=== PATIENT | female | born 1955 | race Caucasian/White ===

== ENCOUNTER 2021-01-08 13:47 | Outpatient (REF) | payer OTHER, SELFPAY ==
[2021-01-14 16:26] LABS: HSV 1 IgM IFA Negative (Negative); HSV 2 IgM IFA Negative (Negative)
== END 2021-01-08 13:48 | disposition home or self-care (01) ==
LOC: HO.HMGCLDS 13:47
PROVIDERS: PCP Physician Assistant; Visit Provider Hospitalist
DX: K13.70 Unspecified lesions of oral mucosa (principal); E11.9 Type 2 diabetes mellitus without complications
CPT/HCPCS: 36415; 86695; 86696

== ENCOUNTER 2021-01-27 11:29 | Outpatient (REF) | payer OTHER, SELFPAY ==
[2021-01-27 13:52] LABS: MANUAL DIFF FLAG NO
[2021-01-27 13:58] LABS: Basophils Percent Auto 0.5 % (0-2); Eosinophils Absolute Auto 0.1 X10*3/uL (0.0-0.4); Eosinophils Percent Auto 2.1 % (0-4); Hematocrit 41.2 % (37-47); Hemoglobin 13.9 g/dl (12.0-16.0); Imm Gran Abs Auto 0.01 X10*3/uL (0.00-0.03); Imm Gran Pct Auto 0.2 % (0.0-0.4); Lymphocytes Absolute Auto 1.1 X10*3/uL (1.2-4.9); Lymphocytes Percent Auto 17.2 % (20-40); Mean Corpuscular HGB Conc 33.7 g/dl (31.0-35.0); Mean Corpuscular Hemoglobin 28.2 pg (27.0-33.0); Mean Corpuscular Volume 83.6 fL (80-98); Mean Platelet Volume 10.8 fL (9.4-12.3); Monocytes Absolute Auto 0.5 X10*3/uL (0.1-1.2); Neutrophils Absolute Auto 4.4 X10*3/uL (2.0-8.3); Platelet Count 206 X10*3/uL (160-400); Red Blood Count 4.93 X10*6/uL (4.20-5.50); Red Cell Distribution Width 12.9 % (11.0-16.0); White Blood Count 6.2 X10*3/uL (4.8-10.8)
[2021-01-27 14:10] LABS: Estimated Average Glucose 140 mg/dL; Hemoglobin A1c % 6.5 %
[2021-01-27 14:42] LABS: TSH reflex Free T4 0.82 uIU/mL (0.32-4.0)
[2021-01-27 14:48] LABS: Alanine Aminotransferase 18 U/L (0-31); Albumin Level 4.6 g/dL (3.5-5.0); Alkaline Phosphatase 69 U/L (39-117); Anion Gap 14 (12-20); Aspartate Amino Transferase 17 U/L (5-31); Bilirubin Total 0.5 mg/dL (0.0-1.0); Blood Urea Nitrogen 19 mg/dL (9-16); Carbon Dioxide 31 mmol/L (22-29); Chloride 100 mmol/L (96-108); Cholesterol 185 mg/dL; Estimated Glomerular Filt Rate 48; Glucose Fasting 149 mg/dL (60-99); HDL Cholesterol 46 mg/dL; LDL Cholesterol Calculated 94 mg/dl; Potassium 4.1 mmol/L (3.3-5.1); Sodium 141 mmol/L (135-145); Total Protein 7.1 g/dL (6.5-8.0); Triglycerides 226 mg/dL
[2021-01-27 15:12] LABS: Creatinine Urine 120.69 mg/dL; Microalbum/Creatinine Ratio Ur 4.1 ug/mg cr
== END 2021-01-27 11:30 | disposition home or self-care (01) ==
LOC: HO.HMGCLDS 11:29
PROVIDERS: PCP Physician Assistant; Visit Provider Physician Assistant
DX: E11.9 Type 2 diabetes mellitus without complications (principal)
CPT/HCPCS: 36415; 80053; 80061; 82043; 83036; 84443; 85025

== ENCOUNTER 2021-08-03 13:35 | Outpatient (REF) | payer OTHER, SELFPAY ==
[2021-08-03 16:32] LABS: Hematocrit 41.8 % (37-47); Hemoglobin 14.3 g/dl (12.0-16.0); Mean Corpuscular HGB Conc 34.2 g/dl (31.0-35.0); Mean Corpuscular Volume 81.8 fL (80-98); Platelet Count 231 X10*3/uL (160-400); Red Blood Count 5.11 X10*6/uL (4.20-5.50); Red Cell Distribution Width 12.8 % (11.0-16.0); White Blood Count 7.2 X10*3/uL (4.8-10.8)
[2021-08-03 16:43] LABS: Alanine Aminotransferase 18 U/L (0-31); Albumin Level 4.6 g/dL (3.5-5.0); Alkaline Phosphatase 72 U/L (39-117); Anion Gap 13 (12-20); Aspartate Amino Transferase 17 U/L (5-31); Bilirubin Total 0.7 mg/dL (0.0-1.0); Blood Urea Nitrogen 13 mg/dL (9-16); Calcium 9.3 mg/dL (8.4-10.2); Carbon Dioxide 26 mmol/L (22-29); Chloride 104 mmol/L (96-108); Cholesterol 187 mg/dL; Estimated Glomerular Filt Rate 54; Glucose Fasting 146 mg/dL (60-99); HDL Cholesterol 45 mg/dL; LDL Cholesterol Calculated 97 mg/dl; Potassium 3.3 mmol/L (3.3-5.1); Sodium 140 mmol/L (135-145); Total Protein 7.2 g/dL (6.5-8.0); Triglycerides 228 mg/dL
[2021-08-03 16:47] LABS: Estimated Average Glucose 143 mg/dL; Hemoglobin A1c % 6.6 %
[2021-08-03 17:04] LABS: TSH reflex Free T4 0.78 uIU/mL (0.32-4.0)
== END 2021-08-03 13:36 | disposition home or self-care (01) ==
LOC: HO.HMGCLDS 13:35
PROVIDERS: PCP Physician Assistant; Visit Provider Physician Assistant
DX: E11.9 Type 2 diabetes mellitus without complications (principal); I10 Essential (primary) hypertension
CPT/HCPCS: 36415; 80053; 80061; 83036; 84443; 85027

== ENCOUNTER 2022-02-04 09:40 | Outpatient (REF) | payer OTHER, SELFPAY ==
[2022-02-04 11:29] LABS: Hematocrit 42.6 % (37.0-47.0); Hemoglobin 14.4 g/dl (12.0-16.0); Mean Corpuscular HGB Conc 33.8 g/dl (31.0-35.0); Mean Corpuscular Hemoglobin 27.4 pg (27.0-33.0); Platelet Count 221 X10*3/uL (160-400); Red Blood Count 5.26 X10*6/uL (4.20-5.50); Red Cell Distribution Width 13.7 % (11.0-16.0); White Blood Count 7.8 X10*3/uL (4.8-10.8)
[2022-02-04 11:54] LABS: Alanine Aminotransferase 23 U/L (0-31); Albumin Level 4.5 g/dL (3.5-5.0); Alkaline Phosphatase 78 U/L (39-117); Anion Gap 16 (12-20); Aspartate Amino Transferase 19 U/L (5-31); Bilirubin Total 0.5 mg/dL (0.0-1.0); Blood Urea Nitrogen 20 mg/dL (9-16); Calcium 9.7 mg/dL (8.4-10.2); Carbon Dioxide 27 mmol/L (22-29); Chloride 98 mmol/L (96-108); Cholesterol 192 mg/dL; Estimated Glomerular Filt Rate 48; Glucose Fasting 183 mg/dL (60-99); HDL Cholesterol 42 mg/dL; LDL Cholesterol Calculated 84 mg/dl; Potassium 3.4 mmol/L (3.3-5.1); Sodium 138 mmol/L (135-145); Total Protein 7.3 g/dL (6.5-8.0); Triglycerides 330 mg/dL
[2022-02-04 12:03] LABS: TSH reflex Free T4 1.48 uIU/mL (0.32-4.0)
[2022-02-04 12:08] LABS: Estimated Average Glucose 163 mg/dL; Hemoglobin A1c % 7.3 %
[2022-02-04 14:34] LABS: Creatinine Urine 54.22 mg/dL; Microalbum/Creatinine Ratio Ur 20.2 ug/mg cr
== END 2022-02-04 09:41 | disposition home or self-care (01) ==
LOC: HO.HMGCLDS 09:40
PROVIDERS: Visit Provider Physician Assistant
DX: E11.9 Type 2 diabetes mellitus without complications (principal); E78.1 Pure hyperglyceridemia; I10 Essential (primary) hypertension
CPT/HCPCS: 36415; 80053; 80061; 82043; 83036; 84443; 85027

== ENCOUNTER 2022-08-04 11:06 | Outpatient (REF) | payer OTHER, SELFPAY ==
[2022-08-04 14:03] LABS: Hematocrit 42.8 % (37.0-47.0); Hemoglobin 14.5 g/dl (12.0-16.0); Mean Corpuscular HGB Conc 33.9 g/dl (31.0-35.0); Mean Corpuscular Hemoglobin 27.1 pg (27.0-33.0); Mean Corpuscular Volume 79.9 fL (80.0-98.0); Mean Platelet Volume 10.6 fL (9.4-12.3); Platelet Count 214 X10*3/uL (160-400); Red Blood Count 5.36 X10*6/uL (4.20-5.50); Red Cell Distribution Width 13.4 % (11.0-16.0)
[2022-08-04 14:25] LABS: Estimated Average Glucose 146 mg/dL; Hemoglobin A1c % 6.7 %
[2022-08-04 14:33] LABS: Alanine Aminotransferase 23 U/L (0-31); Albumin Level 4.6 g/dL (3.5-5.0); Alkaline Phosphatase 68 U/L (39-117); Anion Gap 15 (12-20); Aspartate Amino Transferase 20 U/L (5-31); Bilirubin Total 0.8 mg/dL (0.0-1.0); Blood Urea Nitrogen 18 mg/dL (9-16); Calcium 9.5 mg/dL (8.4-10.2); Carbon Dioxide 28 mmol/L (22-29); Chloride 97 mmol/L (96-108); Cholesterol 161 mg/dL; Estimated Glomerular Filt Rate 41; Glucose Fasting 200 mg/dL (60-99); HDL Cholesterol 38 mg/dL; LDL Cholesterol Calculated 74 mg/dl; Potassium 3.3 mmol/L (3.3-5.1); Sodium 137 mmol/L (135-145); Total Protein 7.2 g/dL (6.5-8.0); Triglycerides 248 mg/dL
[2022-08-04 14:45] LABS: TSH reflex Free T4 0.62 uIU/mL (0.32-4.0)
== END 2022-08-04 11:07 | disposition home or self-care (01) ==
LOC: HO.HMGCLDS 11:06
PROVIDERS: PCP Physician Assistant; Visit Provider Physician Assistant
DX: E11.9 Type 2 diabetes mellitus without complications (principal); E78.1 Pure hyperglyceridemia
CPT/HCPCS: 36415; 80053; 80061; 83036; 84443; 85027

== ENCOUNTER 2023-01-04 15:37 | Outpatient (REF) | payer OTHER, SELFPAY ==
[2023-01-04 18:26] LABS: Influenza A PCR NEGATIVE (Negative); Influenza B PCR NEGATIVE (Negative); Resp Syncy Virus RNA Qual PCR NEGATIVE (Negative); SARS COV2 PCR INHOUSE NEGATIVE (Negative)
== END 2023-01-04 15:38 | disposition home or self-care (01) ==
LOC: HO.LAB 15:37
PROVIDERS: Visit Provider Internal Medicine
DX: Z20.822 Contact with and (suspected) exposure to COVID-19 (principal); J06.9 Acute upper respiratory infection, unspecified
CPT/HCPCS: 0241U

== ENCOUNTER 2023-02-17 11:17 | Outpatient (REF) | payer OTHER, SELFPAY ==
[2023-02-17 14:10] LABS: Hematocrit 41.7 % (37.0-47.0); Hemoglobin 13.9 g/dl (12.0-16.0); Mean Corpuscular HGB Conc 33.3 g/dl (31.0-35.0); Mean Corpuscular Hemoglobin 27.5 pg (27.0-33.0); Mean Corpuscular Volume 82.6 fL (80.0-98.0); Mean Platelet Volume 10.9 fL (9.4-12.3); Platelet Count 228 X10*3/uL (160-400); Red Blood Count 5.05 X10*6/uL (4.20-5.50); Red Cell Distribution Width 14.2 % (11.0-16.0); White Blood Count 7.1 X10*3/uL (4.8-10.8)
[2023-02-17 14:14] LABS: Estimated Average Glucose 137 mg/dL; Hemoglobin A1c % 6.4 %
[2023-02-17 14:33] LABS: Alanine Aminotransferase 18 U/L (0-31); Albumin Level 4.5 g/dL (3.5-5.0); Alkaline Phosphatase 69 U/L (39-117); Anion Gap 15 (12-20); Aspartate Amino Transferase 18 U/L (5-31); Bilirubin Total 0.8 mg/dL (0.0-1.0); Blood Urea Nitrogen 17 mg/dL (9-16); Calcium 9.6 mg/dL (8.4-10.2); Carbon Dioxide 28 mmol/L (22-29); Chloride 102 mmol/L (96-108); Cholesterol 184 mg/dL; Estimated Glomerular Filt Rate 43; Glucose Fasting 121 mg/dL (60-99); HDL Cholesterol 41 mg/dL; LDL Cholesterol Calculated 85 mg/dl; Potassium 3.6 mmol/L (3.3-5.1); Sodium 141 mmol/L (135-145); Total Protein 7.1 g/dL (6.5-8.0); Triglycerides 293 mg/dL
[2023-02-17 14:36] LABS: Magnesium 1.4 mg/dL (1.6-2.6)
[2023-02-17 14:49] LABS: TSH reflex Free T4 1.12 uIU/mL (0.32-4.0); Vitamin D 25-OH Total 27.3 ng/mL (>30)
[2023-02-18 14:04] LABS: Calcium (PTHI) 9.7 mg/dL (8.6-10.4); PTHI 35 pg/mL (16-77)
[2023-02-20 01:58] LABS: A. Phagocytphilium DNA,RT-PCR NOT DETECTED (NOT DETECTED); Babesia Microti DNA, RT-PCR NOT DETECTED (NOT DETECTED); Borrelia Miyamotoi,DNA RT-PCR NOT DETECTED (NOT DETECTED); E.Chaffeensis DNA RT-PCR NOT DETECTED (NOT DETECTED); Lyme(Borrelia ssp)DNA RT-PCR NOT DETECTED (NOT DETECTED)
[2023-02-24 12:18] LABS: Babesia IgG <1:64 titer (<1:64); Babesia IgM <1:20 titer (<1:20)
== END 2023-02-17 11:18 | disposition home or self-care (01) ==
LOC: HO.HMGCLDS 11:17
PROVIDERS: PCP Physician Assistant; Visit Provider Physician Assistant
DX: R53.82 Chronic fatigue, unspecified (principal); E78.1 Pure hyperglyceridemia; E11.9 Type 2 diabetes mellitus without complications; E66.9 Obesity, unspecified; F32.A Depression, unspecified
CPT/HCPCS: 36415; 80053; 80061; 82306; 83036; 83735; 83970; 84443; 85027; 86753; 87798; 87801

== ENCOUNTER 2023-02-21 12:02 | Outpatient (REF) | payer OTHER, SELFPAY ==
[2023-02-21 14:15] LABS: Appearance Urine Clear; Color Urine Yellow; Glucose Urine UA Negative (Negative); Leukocyte Esterase Urine Negative (Negative); Nitrite Urine Negative (Negative); Urine Blood Negative (Negative); Urine Ketones Negative (Negative); Urine Protein Negative (Neg-Trace)
[2023-02-21 14:31] LABS: Magnesium 2.4 mg/dL (1.6-2.6)
[2023-02-21 15:04] LABS: Creatinine Urine 46.41 mg/dL; Microalbumin Urine < 5.0 mg/L
== END 2023-02-21 12:03 | disposition home or self-care (01) ==
LOC: HO.HMGCLDS 12:02
PROVIDERS: Absent Provider Nurse Practitioner Family; PCP Physician Assistant; Visit Provider Physician Assistant
DX: R30.0 Dysuria (principal); R53.83 Other fatigue; E83.42 Hypomagnesemia; E11.9 Type 2 diabetes mellitus without complications
CPT/HCPCS: 36415; 81003; 82043; 83735

== ENCOUNTER 2023-08-03 14:01 | Outpatient (AMB) | payer OTHER, SELFPAY ==
[2023-08-03 14:02] VITALS: BP 122/70; PULSE 84; O2SAT 95; BMI 32.2
--- NOTE | 2023-08-03 14:02 | MHC.OFFVIS ---
Intake Vital Signs 08/03/23 14:02 Height 5 ft 4 in Weight 187 lb 6 oz BMI 32.2 BP 122/70 Blood Pressure Location Rt brachial Position Sitting Pulse 84 Pulse Source Pulse Oximeter Pulse Oximetry (%) 95 Oxygen Delivery Method Room Air Intake Visit Reasons: INP- Lateral popliteal nerve Intake Note: Pt presents as a NPV for laterlal popliteal nerve. 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 side of pain. stop moving pain start. pain worse whe she sedentry. When she moves the pain has better. half hour walking . She started topiramate 6 months. podiatry and had ner conduction study. Denies injuries of lower extremities. used compression stocking for rufus swallowing feet Since at her age 21. PFSH Medical History (Updated 08/25/23 @ 09:10 by Yonatan Wiggins PA-C) Hypomagnesemia Surgical History (Updated 08/03/23 @ 14:12 by Nohelia Parnell CMA) Hx of cataract surgery H/O dilation and curettage History of craniotomy History of left salpingo-oophorectomy Family History Father Prostate cancer Mother No problems noted. Son No problems noted. Social History (Updated 08/03/23 @ 14:12 by Nohelia Parnell CMA) Housing: House Alcohol intake: former Patient Tobacco Use Status: Former Tobacco user Quit Date: 1996 e-Cigarette/Vaping Use: Never Used Second Hand Smoke Exposure: No service: No Current occupational status: retired Cognitive needs: No Hearing needs: No Vision needs: Yes (glasses) Review of Systems ENT Reports Normal hearing present Neuro Reports Normal hearing present Physical Exam Vital Signs: Last Vital Signs Pulse 84 08/03/23 14:02 BP 122/70 08/03/23 14:02 Pulse Ox 95 08/03/23 14:02 Oxygen Delivery Method Room Air 08/03/23 14:02 BMI result Body Mass Index 32.2 Const General: cooperative and healthy appearing Nutritional Appearance: obese Orientation/consciousness: patient oriented x3 Neck Neck: Yes full ROM and Yes supple Resp Effort & Inspection: normal respiratory effort and able to speak in complete sentences Neuro General: patient oriented x3, gait normal and moves all extremities Cranial nerves: Yes Bilaterally intact EOM present, Yes Normal facial strength present, Yes Midline tongue present, Yes Symmetric palate elevation present, Yes Normal hearing present, Yes Ability to bilaterally rotate head present and Yes Ability to bilaterally elevate shoulders present Cognition (Neuro): normal cognition Motor exam (neuro): 5/5 motor strength present throughout, Pronator motor function not present and no tremor noted Deep tendon reflexes (DTR's): Rt Biceps (C5, C6): 2+, Left biceps reflex intensity grade: 2+, Right brachioradialis reflex intensity grade: 2+, Left brachioradialis reflex intensity grade: 2+, Right patellar reflex intensity grade: 2+ and Left patellar reflex intensity grade: 2+ Psych Appearance: grossly normal Mental Status: mental status grossly normal Affect: normal affect Attitude: cooperative Assessment & Plan Assessment & Plan (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 Advised patient to use knee braces on her bilateral knees. Encouraged patient to try gentle daily exercise and well balanced diet. Orders: Orders PT Evaluation and Treatment 12 Weeks G57.30 - Lesion of lateral popliteal nerve, unspecified lower limb Coding Level of Care Code New Pt Level 3 (72781) Diagnoses Peroneal neuropathy G57.30
== END 2023-08-03 15:29 | disposition home or self-care (01) ==
PROVIDERS: Visit Provider Nurse Practitioner Family
DX: G57.30 Lesion of lateral popliteal nerve, unspecified lower limb (principal)
CPT/HCPCS: 99203

== ENCOUNTER → 2023-08-03 14:01 | Outpatient (BNVA) | payer OTHER, SELFPAY | PROVIDERS: Visit Provider Nurse Practitioner Family ==

== ENCOUNTER 2023-08-24 11:24 | Outpatient (REF) | payer OTHER, SELFPAY ==
[2023-08-24 13:25] LABS: Hematocrit 39.8 % (37.0-47.0); Hemoglobin 13.7 g/dl (12.0-16.0); Mean Corpuscular HGB Conc 34.4 g/dl (31.0-35.0); Mean Corpuscular Hemoglobin 27.8 pg (27.0-33.0); Mean Corpuscular Volume 80.9 fL (80.0-98.0); Mean Platelet Volume 10.5 fL (9.4-12.3); Platelet Count 224 X10*3/uL (160-400); Red Blood Count 4.92 X10*6/uL (4.20-5.50); Red Cell Distribution Width 13.8 % (11.0-16.0); White Blood Count 6.1 X10*3/uL (4.8-10.8)
[2023-08-24 13:33] LABS: Estimated Average Glucose 114 mg/dL; Hemoglobin A1c % 5.6 % (<6.0)
[2023-08-24 14:02] LABS: Alanine Aminotransferase 15 U/L (0-31); Albumin Level 4.4 g/dL (3.5-5.0); Alkaline Phosphatase 60 U/L (39-117); Anion Gap 16 (12-20); Aspartate Amino Transferase 19 U/L (5-31); Bilirubin Total 0.6 mg/dL (0.0-1.0); Blood Urea Nitrogen 17 mg/dL (9-16); Calcium 9.3 mg/dL (8.4-10.2); Carbon Dioxide 26 mmol/L (22-29); Chloride 101 mmol/L (96-108); Cholesterol 150 mg/dL (<200); Estimated Glomerular Filt Rate 51; Glucose Fasting 94 mg/dL (60-99); HDL Cholesterol 37 mg/dL (>40); LDL Cholesterol Calculated 74 mg/dL (<100); Potassium 2.8 mmol/L (3.3-5.1); Sodium 140 mmol/L (135-145); Total Protein 7.3 g/dL (6.5-8.0); Triglycerides 198 mg/dL (<150)
[2023-08-24 14:20] LABS: TSH reflex Free T4 0.87 uIU/mL (0.32-4.0)
== END 2023-08-24 11:25 | disposition home or self-care (01) ==
LOC: HO.HMGCLDS 11:24
PROVIDERS: PCP Physician Assistant; Visit Provider Physician Assistant
DX: E11.9 Type 2 diabetes mellitus without complications (principal); E66.09 Other obesity due to excess calories; Z68.34 Body mass index [BMI] 34.0-34.9, adult
CPT/HCPCS: 36415; 80053; 80061; 83036; 84443; 85027

== ENCOUNTER 2023-08-30 12:09 | Outpatient (REF) | payer OTHER, SELFPAY | END 2023-08-30 12:10 | disposition home or self-care (01) | LOC: HO.HMGCLDS 12:09 | PROVIDERS: PCP Physician Assistant; Visit Provider Physician Assistant | DX: E87.6 Hypokalemia (principal) | CPT/HCPCS: 36415; 84132 ==

== ENCOUNTER 2023-08-31 13:18 | Outpatient (AMB) | payer OTHER, SELFPAY ==
[2023-08-31 13:23] VITALS: BP 120/68; PULSE 66; RESP 17; O2SAT 98; BMI 31.8
--- NOTE | 2023-08-31 13:23 | MHC.PC.OV ---
Vital Signs 08/31/23 13:23 Height 5 ft 4 in Weight 185 lb 4 oz BMI 31.8 BP 120/68 Blood Pressure Location Lt brachial Position Sitting Respiration 17 Pulse 66 Pulse Source Pulse Oximeter Pulse Oximetry (%) 98 Oxygen Delivery Method Room Air Intake Visit Reasons: PE Intake Note: Patient is here today for a physical. 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 Accompanied by: Self / Same As Patient Allergies penicillin V Allergy (Unknown, Verified 08/31/23 13:33) Unknown Medication List - Last Reconciled 08/31/23 by Yonatan Wiggins PA-C atorvastatin 80 mg PO DAILY 90 days dextroamphetamine-amphetamine 20 mg ER (Adderall XR) 20 mg PO DAILY dulaglutide (Trulicity) 0.75 mg subcut .Q2week sertraline 100 mg PO DAILY topiramate 100 mg PO BEDTIME trazodone 100 mg PO BEDTIME triamterene-hydrochlorothiazid 37.5-25 mg 1 tab PO DAILY ziprasidone HCl (Geodon) 20 mg PO DAILY Tobacco use date assessed: 02/23/23 Fall risk assessment: No Falls in past year Last assessed Fall Risk: 08/31/23 Dental Screening Dental Screen Date: 08/31/23 Did you have a dental visit in the last 12 months?: Yes Did you have a dental problem in the last 6 months where you did not have access to dental care?: No Was dental information given to patient?: Patient has dentist HPI PE HPI Details Patient is a 68-year-old female here today for a routine annual physical. ? Patient has a past history significant type 2 diabetes, mdd, hypertension history of craniotomy. Concern--> noted low-potassium most recent labs. She has been trying to increase her potassium is foods. PLAN: Will decrease her dose of hydrochlorothiazide. Will add on potassium supplement for the next 2 weeks. Advised to recheck potassium next week. Also reports she has been having intermittent loose stool and diarrhea, abdominal bloating and epigastric pain. She has been using Pepto-Bismol which helps a bit though continues to have abdominal symptoms. 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 .. Type 2 diabetes:? Has been well controlled with Trulicity (using every other week) lifestyle changes.? A1c is much improved.? Has lost weight since last office visit. She reports she feels great. ? She is followed by eye doctor and gets diabetic eye exams. HLD: Patient's total cholesterol improved, LDL acceptable.? Patient continues on statin therapy without side effect. .. Major depressive disorder:? Patient continues to follow with psychiatrist who manages all her mental health medications.? She reports her depression is fairly well controlled though still has times of depressive moods and decreased motivation. Colonoscopy: gets colon done q 5 year-- > goes to [facility] provider . Mammogram:? Has been benign January of 2023- normal ( [facility]), ZOO DIRECTOR: See Dr Ashley at [facility]. .. VAccine:UTD with Tdap and PCV and COVID vaccine, shingles vaccine and flu vaccine Laboratory Tests 02/23/23 08/24/23 08/24/23 15:29 11:31 11:31 RBC 4.92 Potassium Hgb A1c (Clinic) 5.9 Hemoglobin A1c % 5.6 Cholesterol 150 TSH 0.87 08/24/23 08/30/23 11:31 12:12 RBC Potassium 2.8 L D 2.7 L Hgb A1c (Clinic) Hemoglobin A1c % Cholesterol TSH PFSH Medical History (Updated 08/31/23 @ 14:00 by Yonatan Wiggins PA-C) Hypomagnesemia Surgical History Hx of cataract surgery H/O dilation and curettage History of craniotomy History of left salpingo-oophorectomy Family History Father Prostate cancer Mother No problems noted. Son No problems noted. Social History Housing: House Alcohol intake: former Patient Tobacco Use Status: Former Tobacco user Quit Date: 1996 e-Cigarette/Vaping Use: Never Used Second Hand Smoke Exposure: No service: No Current occupational status: retired Cognitive needs: No Hearing needs: No Vision needs: Yes (glasses) Questionnaire Thrive Questionnaire Date Thrive assessed: 02/23/23 FILIBERTO-7 AMB Questionnaire FILIBERTO-7 Date FILIBERTO - 7 assessed: 02/23/23 Source: Developed by Drs. Abdirahman Lepe, Renetta B.W. Giovani Wheeler and colleagues, with an educational celi from [employer]. Review of Systems Const Denies body aches, Denies chills, Denies excessive sweating, Denies fatigue, Denies fever(s) and Denies headache(s) Eyes Denies blurry vision ENT Denies dysphagia, Denies vertigo, Denies dizziness, Denies headache(s), Denies hearing loss and Denies tinnitus Card Denies chest pain, Denies chest pain with activity, Denies syncope, Denies irregular heart rhythm and Denies dyspnea Resp Denies chest congestion, Denies cough, Denies hemoptysis, Denies dyspnea and Denies wheezing GI Denies abdominal pain, Denies melena, Denies hematochezia, Denies coffee ground emesis, Denies dysphagia, Denies diarrhea, Denies nausea and Denies vomiting Denies urinary frequency, Denies dysuria, Denies urinary hesitancy and Denies urinary urgency Musc Denies arthralgias, Denies limited range of motion, Denies muscle cramps and Denies muscle weakness Skin/Breast Denies rash and Denies skin ulcer Neuro Denies Abnormal speech present, Denies confusion, Denies vertigo, Denies dizziness, Denies syncope, Denies headache(s), Denies memory loss and Denies seizure-like activity Psych Denies anxiety, Denies confusion, Denies depression, Denies memory loss, Denies panic attacks and Denies paranoia Endo Denies excessive sweating, Denies fatigue, Denies flushing, Denies polydipsia and Denies polyuria Aller/Immun Denies wheezing Physical exam (Primary Care) Vital Signs: Last Vital Signs Pulse 66 08/31/23 13:23 Resp 17 08/31/23 13:23 BP 120/68 08/31/23 13:23 Pulse Ox 98 08/31/23 13:23 Oxygen Delivery Method Room Air 08/31/23 13:23 BMI result Body Mass Index 31.8 BMI Assessment/Plan discussion: High Tobacco/Smoking Status: Tobacco use Status Tobacco use date assessed 02/23/23 08/31/23 13:31 Patient Tobacco Use Status Former Tobacco user 08/31/23 13:31 e-Cigarette/Vaping Use Never Used 08/31/23 13:31 Thrive Assessment: Date of Thrive Assessment Date Thrive assessed 02/23/23 08/31/23 13:31 Const Other: Obese- though weight loss noted General: cooperative, comfortable, no acute distress, alert and awake; No confusion Orientation/consciousness: oriented to person, oriented to place, patient oriented x3 and No confusion HENMT Head: Yes normocephalic Ears: external ears normal and TM's normal bilaterally Face and sinus: No sinus tenderness Mouth: Normal oral and palatal mucosa present and tongue normal Teeth and gingiva: dentition normal and gingiva normal Throat: Yes posterior oropharynx normal, Yes tonsils normal and Yes uvula midline Eyes Conjunctivae: conjunctivae normal Sclerae: sclerae normal Pupils: Equal, round and reactive pupils present EOM: EOMs intact bilaterally Direct Ophthalmoscopy: No no photophobia Neck Neck: Yes no lymphadenopathy, No tender and Yes no JVD Thyroid: Thyroid normal Carotids: no bruits Chest Chest palpation & inspection: no tenderness Resp Effort & Inspection: normal respiratory effort, no audible wheezes, not labored and no stridor Auscultation: no crackles, no rales, no rhonchi and no wheezes Cardio Jugular venous distension: no JVD Rate: regular rate, not bradycardic and not tachycardic Rhythm: regular rhythm Bruits: no carotid bruits Peripheral pulses: Peripheral pulses 2+ throughout GI Inspection: Yes normal to inspection, No abdominal wall ecchymosis and No visible herniation Palpation (GI): Soft to palpation, nontender, no guarding, not rigid and No hepatosplenomegaly present Auscultation: normoactive bowel sounds General: Yes no CVA tenderness Back/Spine/Pelvis Back: no CVA tenderness and No back tenderness Cervical Spine: cervical ROM normal Thoracic/Lumbar Spine: thoracic and lumbar spine normal to inspection, straight leg raise negative bilaterally, No thoraco-lumbar ROM limited and No lumbar spinal tenderness Skin Lesions: no lesions Rashes: no rashes Wounds: no wounds Neuro General: oriented to person, oriented to place, patient oriented x3, CN's II-XI intact bilaterally and No confusion Cranial nerves: Yes Equal, round and reactive pupils present and Yes Normal accommodation reflex present Cognition (Neuro): normal cognition Speech: No Abnormal speech present Gait exam (Neuro): Normal gait present Motor exam (neuro): 5/5 motor strength present throughout Extrem Right upper extremity: full ROM; no cyanosis Left upper extremity: full ROM; no cyanosis Right lower extremity: no edema Left lower extremity: no edema Psych Appearance: grossly normal Mental Status: mental status grossly normal Affect: normal affect Attitude: cooperative Thought process: Normal thought process present Assessment and Plan Assessment & Plan (1) Annual physical exam: Code(s): Z00.00 - Encounter for general adult medical examination without abnormal findings (2) Hypokalemia: Code(s): E87.6 - Hypokalemia Plan: As per HPI will recheck potassium. Hypokalemia likely related to medication in combination with loose stools. Will reduce her dose of hydrochlorothiazide 12.5 mg (3) HLD (hyperlipidemia): Code(s): E78.5 - Hyperlipidemia, unspecified Qualifiers: Hyperlipidemia type: mixed hyperlipidemia Qualified Code(s): E78.2 - Mixed hyperlipidemia Plan: Most recent lipid panel showing appropriate total cholesterol and LDL. Patient will continue on high-dose statin therapy with goal LDL to remain below 100 (4) DMII (diabetes mellitus, type 2): Code(s): E11.9 - Type 2 diabetes mellitus without complications Qualifiers: Diabetes mellitus complication status: without complication Diabetes mellitus intermediate frame tender insulin use: without care home use Qualified Code(s): E11.9 - Type 2 diabetes mellitus without complications Plan: Patient's type 2 diabetes well controlled with current dose Trulicity every other week. Continue to work on lifestyle modifications and a diabetic diet. Goal A1c is to remain below 6.5 (5) Acute diarrhea: Code(s): R19.7 - Diarrhea, unspecified Plan: Have reviewed Sola reports having intermittent episodes of acute diarrhea, at times having urgency. She is wondering about another colonoscopy will ask her GI specialist. Advised on stool bulking agents in the use loperamide. Will send for stool testing to evaluate for inflammatory GI process Orders: Orders Leukocytes Stool Qualitative 08/31/23 R19.7 - Diarrhea, unspecified Comprehensive [place]. Panel Fast 6 Months E11.9 - Type 2 diabetes mellitus without complications Basic Metabolic Panel 08/31/23 E87.6 - Hypokalemia Giardia Ag Stool EIA 08/31/23 R19.7 - Diarrhea, unspecified Calprotectin, Fecal 08/31/23 R19.7 - Diarrhea, unspecified Lipid Panel 6 Months E78.2 - Mixed hyperlipidemia Complete Blood Count no Diff 6 Months E11.9 - Type 2 diabetes mellitus without complications Medications: New hydrochlorothiazide 12.5 mg PO DAILY 30 days 30 tabs 3RF E87.6 - Hypokalemia potassium chloride ER (Klor-Con) 10 mEq PO DAILY 14 days 14 tabs 0RF E87.6 - Hypokalemia hydrochlorothiazide 12.5 mg PO DAILY 30 days 30 tabs 3RF E87.6 - Hypokalemia potassium chloride ER (Klor-Con) 10 mEq PO DAILY 14 days 14 tabs 0RF E87.6 - Hypokalemia Coding Level of Care Code Est Pt Prev Care >65y(86739) Diagnoses Annual physical exam Z00.00 Hypokalemia E87.6 Mixed hyperlipidemia E78.2 Hyperlipidemia type: mixed hyperlipidemia Type 2 diabetes mellitus without complication, without long-term current use of insulin E11.9 Diabetes mellitus complication status: without complication Diabetes mellitus intermediate frame tender insulin use: without care home use Acute diarrhea R19.7
== END 2023-08-31 14:08 | disposition home or self-care (01) ==
PROVIDERS: Visit Provider Physician Assistant
DX: Z00.00 Encounter for general adult medical examination without abnormal findings (principal); E87.6 Hypokalemia; E78.2 Mixed hyperlipidemia; E11.9 Type 2 diabetes mellitus without complications; R19.7 Diarrhea, unspecified
CPT/HCPCS: 99397

== ENCOUNTER 2023-09-13 14:35 | Outpatient (REF) | payer OTHER, SELFPAY ==
[2023-09-13 16:59] LABS: Anion Gap 14 (12-20); Blood Urea Nitrogen 13 mg/dL (9-16); Calcium 9.3 mg/dL (8.4-10.2); Carbon Dioxide 26 mmol/L (22-29); Chloride 104 mmol/L (96-108); Estimated Glomerular Filt Rate > 60; Glucose Random 91 mg/dL (60-115); Potassium 2.9 mmol/L (3.3-5.1); Sodium 141 mmol/L (135-145)
== END 2023-09-13 14:36 | disposition home or self-care (01) ==
LOC: HO.HMGCLDS 14:35
PROVIDERS: PCP Physician Assistant; Visit Provider Physician Assistant
DX: E87.6 Hypokalemia (principal)
CPT/HCPCS: 36415; 80048

== ENCOUNTER 2023-10-04 13:49 | Outpatient (REF) | payer OTHER, SELFPAY ==
[2023-10-04 16:26] LABS: Potassium 2.8 mmol/L (3.3-5.1)
== END 2023-10-04 13:50 | disposition home or self-care (01) ==
LOC: HO.HMGCLDS 13:49
PROVIDERS: PCP Physician Assistant; Visit Provider Physician Assistant
DX: E87.6 Hypokalemia (principal)
CPT/HCPCS: 36415; 84132

== ENCOUNTER 2023-11-08 13:53 | Outpatient (REF) | payer OTHER, SELFPAY ==
[2023-11-08 16:17] LABS: Potassium 2.9 mmol/L (3.3-5.1)
== END 2023-11-08 13:54 | disposition home or self-care (01) ==
LOC: HO.HMGCLDS 13:53
PROVIDERS: PCP Physician Assistant; Visit Provider Physician Assistant
DX: E87.6 Hypokalemia (principal)
CPT/HCPCS: 36415; 84132

== ENCOUNTER 2023-12-29 12:52 | Outpatient (REF) | payer OTHER, SELFPAY ==
[2023-12-29 16:22] LABS: Potassium 3.1 mmol/L (3.3-5.1)
[2023-12-29 16:34] LABS: Anion Gap 13 (12-20); Blood Urea Nitrogen 17 mg/dL (9-16); Calcium 9.6 mg/dL (8.4-10.2); Carbon Dioxide 28 mmol/L (22-29); Chloride 99 mmol/L (96-108); Estimated Glomerular Filt Rate 45; Glucose Random 125 mg/dL (60-115); Magnesium 1.9 mg/dL (1.6-2.6); Potassium 3.3 mmol/L (3.3-5.1); Sodium 137 mmol/L (135-145)
== END 2023-12-29 12:53 | disposition home or self-care (01) ==
LOC: HO.HMGCLDS 12:52
PROVIDERS: PCP Physician Assistant; Visit Provider Physician Assistant
DX: E87.6 Hypokalemia (principal); E83.42 Hypomagnesemia
CPT/HCPCS: 36415; 80048; 83735; 84132

== ENCOUNTER 2024-02-16 11:06 | Outpatient (REF) | payer OTHER, SELFPAY ==
[2024-02-16 13:46] LABS: Anion Gap 16 (12-20); Blood Urea Nitrogen 17 mg/dL (9-16); Calcium 9.4 mg/dL (8.4-10.2); Carbon Dioxide 28 mmol/L (22-29); Chloride 100 mmol/L (96-108); Estimated Glomerular Filt Rate 53; Glucose Random 126 mg/dL (60-115); Potassium 3.2 mmol/L (3.3-5.1); Sodium 141 mmol/L (135-145)
== END 2024-02-16 11:07 | disposition home or self-care (01) ==
LOC: HO.HMGCLDS 11:06
PROVIDERS: PCP Physician Assistant; Visit Provider Physician Assistant
DX: E87.6 Hypokalemia (principal)
CPT/HCPCS: 36415; 80048

== ENCOUNTER 2024-03-05 11:45 | Outpatient (REF) | payer OTHER, SELFPAY ==
[2024-03-05 13:49] LABS: Hematocrit 42.1 % (37.0-47.0); Hemoglobin 13.9 g/dl (12.0-16.0); Mean Corpuscular Hemoglobin 27.8 pg (27.0-33.0); Mean Corpuscular Volume 84.2 fL (80.0-98.0); Mean Platelet Volume 10.3 fL (9.4-12.3); Platelet Count 199 X10*3/uL (160-400); Red Cell Distribution Width 14.1 % (11.0-16.0); White Blood Count 6.4 X10*3/uL (4.8-10.8)
[2024-03-05 14:22] LABS: Alanine Aminotransferase 13 U/L (0-31); Albumin Level 4.2 g/dL (3.5-5.0); Alkaline Phosphatase 69 U/L (39-117); Anion Gap 14 (12-20); Aspartate Amino Transferase 15 U/L (5-31); Bilirubin Total 0.5 mg/dL (0.0-1.0); Blood Urea Nitrogen 19 mg/dL (9-16); Calcium 9.3 mg/dL (8.4-10.2); Carbon Dioxide 23 mmol/L (22-29); Chloride 108 mmol/L (96-108); Cholesterol 147 mg/dL (<200); Estimated Glomerular Filt Rate 51; Glucose Fasting 77 mg/dL (60-99); HDL Cholesterol 47 mg/dL (>40); LDL Cholesterol Calculated 70 mg/dL (<100); Potassium 3.8 mmol/L (3.3-5.1); Sodium 141 mmol/L (135-145); Triglycerides 153 mg/dL (<150)
== END 2024-03-05 11:46 | disposition home or self-care (01) ==
LOC: HO.HMGCLDS 11:45
PROVIDERS: PCP Physician Assistant; Visit Provider Physician Assistant
DX: E11.9 Type 2 diabetes mellitus without complications (principal); E78.2 Mixed hyperlipidemia
CPT/HCPCS: 36415; 80053; 80061; 85027

== ENCOUNTER 2024-03-12 10:06 | Outpatient (AMB) | payer OTHER, SELFPAY ==
[2024-03-12 10:07] VITALS: BP 120/62; PULSE 77; O2SAT 99; BMI 34.2
--- NOTE | 2024-03-12 10:07 | A.OFFPC_ITS ---
Vital Signs 03/12/24 10:07 Height 5 ft 4 in Weight 199 lb 8 oz BMI 34.2 BP 120/62 Blood Pressure Location Lt brachial Position Sitting Pulse 77 Pulse Source Pulse Oximeter Pulse Oximetry (%) 99 Oxygen Delivery Method Room Air Intake Visit Reasons: f/u DMII/ HLD [place] Required: No Accompanied by: Self / Same As Patient Allergies penicillin V Allergy (Unknown, Verified 03/12/24 10:20) Unknown hydrochlorothiazide Adverse Reaction (Intermediate, Verified 03/15/24 08:05) Hypokalemia Medication List - Last Reconciled 03/12/24 by Yonatan Wiggins PA-C atorvastatin 80 mg PO DAILY 90 days dextroamphetamine-amphetamine 20 mg ER (Adderall XR) 20 mg PO DAILY dulaglutide (Trulicity) 0.75 mg subcut .Q2week hydrochlorothiazide 12.5 mg PO DAILY 30 days potassium chloride ER (Klor-Con M) 20 mEq PO DAILY 30 days sertraline 100 mg PO DAILY topiramate 100 mg PO BEDTIME trazodone 100 mg PO BEDTIME ziprasidone HCl (Geodon) 20 mg PO DAILY Tobacco use date assessed: 03/12/24 Fall risk assessment: No Falls in past year Last assessed Fall Risk: 03/12/24 Dental Screening Dental Screen Date: 03/12/24 Did you have a dental visit in the last 12 months?: Yes Did you have a dental problem in the last 6 months where you did not have access to dental care?: No Was dental information given to patient?: Patient has dentist HPI f/u DMII/ HLD HPI Details Patient is a 69-year-old female here today for a follow-up visit. ? Patient has a past history significant type 2 diabetes, mdd, hypertension history of craniotomy. Concern--> Having bilateral arm pain over the last few months. She denies any recent overuse or trauma to her upper extremities/ Hypokalemia: Noted improved potassium on most recent labs. Her hydrochlorothiazide was decreased. Unfortunately has gained weight since being off of diuretic. Has been started on potassium supplementation. She has been trying to increase her potassium is foods. .. Type 2 diabetes:? Has been well controlled with Trulicity (using every other week) lifestyle changes.? A1c has been stable. Unfortunately has gained weight since last office visit and she does admit to being more sedentary over the winter. ? She is followed by eye doctor and gets diabetic eye exams. HLD: Patient's total cholesterol improved, LDL acceptable.? Patient continues on statin therapy without side effect. .. Major depressive disorder:? Patient continues to follow with psychiatrist who manages all her mental health medications.? She reports her depression is fairly well controlled though still has times of depressive moods and decreased motivation. Laboratory Tests 11/08/23 12/29/23 02/16/24 14:07 13:00 11:10 Potassium 2.9 L 3.1 L 3.2 L Cholesterol LDL Cholesterol, C alc 03/05/24 11:49 Potassium 3.8 Cholesterol 147 LDL Cholesterol, C alc 70 PFSH Medical History (Updated 03/12/24 @ 10:36 by Yonatan Wiggins PA-C) Hypomagnesemia Surgical History Hx of cataract surgery H/O dilation and curettage History of craniotomy History of left salpingo-oophorectomy Family History Father Prostate cancer Mother No problems noted. Son No problems noted. Social History Housing: House Alcohol intake: former Patient Tobacco Use Status: Former Tobacco user Quit Date: 1996 e-Cigarette/Vaping Use: Never Used Second Hand Smoke Exposure: No service: No Current occupational status: retired Cognitive needs: No Hearing needs: No Vision needs: Yes (glasses) Questionnaire PHQ-9 Over the last 2 weeks, how often have you been bothered by any of the following problems? 1. Little interest or pleasure in doing things: not at all 2. Feeling down, depressed, or hopeless: not at all 3. Trouble falling or staying asleep, or sleeping too much: not at all 4. Feeling tired or having little energy: not at all 5. Poor appetite or overeating: not at all 6. Feeling bad about yourself - or that you are a failure or have let yourself or your family down: not at all 7. Trouble concentrating on things, such as reading the newspaper or watching television: not at all 8. Moving or speaking so slowly that other people could have noticed. Or the opposite - being so fidgety or restless that you have been moving around a lot more than usual: not at all 9. Thoughts that you would be better off or of hurting yourself in some way: not at all Total score: 0 Depression Screening Interpretation: Negative Depression Screening Done: Yes 42412 - PHQ-9 Billing: Yes Source: Developed by Drs. Abdirahman Lepe, Renetta Wheeler, Giovani Dueñas and colleagues, with an educational celi from [employer]. Thrive Questionnaire Date Thrive assessed: 03/12/24 I am a: Patient What is your living situation today?: I have a steady place to live Within the past 12 months, did the food you bought not last and you didn't have the money to get more?: Never true Within the past 12 months, did you worry whether your food would run out before you got money to buy more?: Never true Do you have trouble paying for medicines?: No Do you have trouble getting transportation to medical appointments?: No Do you have trouble paying your heating and electricity bill?: No Do you have trouble taking care of your child, family member or friend?: No Do you have trouble with day-to-day activities such as bathing, preparing meals, shopping, managing finances, etc.?: No Are you currently unemployed and looking for a job?: No Are you interested in more education?: No Please select the resources that you would like help with: None Currently or been in a relationship where the following occur: no concerns reported THRIVE Score: 0 AUDIT C Alcohol Use Questionnaire (AUDIT-C) 1. How often do you have a drink containing alcohol?: Never 3. How often do you have six or more drinks on one occasion?: Never Total Score: 0 FILIBERTO-7 AMB Questionnaire FILIBERTO-7 Date FILIBERTO - 7 assessed: 03/12/24 Feeling nervous, anxious, or on edge: 0 = Not at all Not being able to stop or control worryin = Not at all Worrying too much about different things: 0 = Not at all Trouble relaxin = Not at all Being so restless that it is hard to sit still: 0 = Not at all Becoming easily annoyed or irritable: 0 = Not at all Feeling afraid as if something awful might happen: 0 = Not at all Total FILIBERTO-7 score (0-4 normal; 5-9 mild; 10-14 moderate; 15-21 severe): 0 Source: Developed by Drs. Abdirahman Lepe, Renetta Wheeler, Giovani Dueñas and colleagues, with an educational celi from [employer]. FILIBERTO-7 Assessment Billing FILIBERTO-7 Assessment Tool: FILIBERTO-7 Assessment 28503 Review of Systems Const Denies headache(s) Eyes Denies loss of vision ENT Denies vertigo, Denies dizziness, Denies headache(s) and Denies sore throat Card Denies chest pain, Denies leg edema and Denies lightheadedness Resp Denies cough, Denies hemoptysis and Denies wheezing GI Denies abdominal pain, Denies melena, Denies constipation, Denies diarrhea and Denies vomiting Denies urinary frequency, Denies dysuria and Denies urinary urgency Musc Denies arthralgias, Denies joint swelling, Denies numbness and Denies tingling Neuro Denies Abnormal speech present, Denies behavioral changes, Denies vertigo, Denies dizziness, Denies headache(s), Denies loss of vision, Denies memory loss, Denies numbness and Denies tingling Psych Denies anxiety, Denies behavioral changes, Denies depression, Denies memory loss and Denies panic attacks Bladimir/Lymph Denies easy bleeding and Denies easy bruising Aller/Immun Denies wheezing Physical exam (Primary Care) Vital Signs: Last Vital Signs Pulse 77 03/12/24 10:07 BP 120/62 03/12/24 10:07 Pulse Ox 99 03/12/24 10:07 Oxygen Delivery Method Room Air 03/12/24 10:07 BMI result Body Mass Index 34.2 BMI Assessment/Plan discussion: High BMI High, discussed plan: lifestyle, weight reduction, dietary and physical activity Tobacco/Smoking Status: Tobacco use Status Tobacco use date assessed 03/12/24 03/12/24 10:17 Patient Tobacco Use Status Former Tobacco user 03/12/24 10:08 e-Cigarette/Vaping Use Never Used 03/12/24 10:08 PHQ-9: PHQ-9 Score PHQ-9: Total score 0 03/12/24 10:21 Depression Screening Interpretation: Negative Thrive Assessment: Date of Thrive Assessment Date Thrive assessed 03/12/24 03/12/24 10:17 Currently or been in a relationship where the following occur: no concerns reported Const General: healthy appearing, no acute distress, alert and awake Nutritional Appearance: well nourished Orientation/consciousness: oriented to person, oriented to place and oriented to time HENMT Ears: TM's normal bilaterally General nose exam: Normal nasal mucous membranes and turbinates present Eyes Conjunctivae: conjunctivae normal Sclerae: sclerae normal Pupils: Equal, round and reactive pupils present Neck Neck: Yes no lymphadenopathy and Yes no JVD Thyroid: Thyroid normal Carotids: no bruits Resp Effort & Inspection: normal respiratory effort and not tachypneic Auscultation: no crackles, no rales, no rhonchi and no wheezes Cardio Rate: regular rate Rhythm: regular rhythm Heart sounds: no murmurs and normal S1 and S2 GI Palpation (GI): Soft to palpation, nontender, no hepatomegaly and no splenomegaly Auscultation: normal bowel sounds Skin General skin exam: no rashes or lesions noted and dry skin Neuro General: oriented to person, oriented to place and oriented to time Cranial nerves: Yes Equal, round and reactive pupils present Speech: No Abnormal speech present Gait exam (Neuro): Normal gait present Motor exam (neuro): no tremor noted Extrem Right upper extremity: full ROM Left upper extremity: full ROM Right lower extremity: full ROM; no edema Left lower extremity: full ROM; no edema Psych Mental Status: mental status grossly normal Speech and movement: Normal speech and movement present Affect: normal affect Attitude: cooperative Thought process: Normal thought process present Assessment and Plan Assessment & Plan (1) Hypokalemia: Code(s): E87.6 - Hypokalemia Plan: Has resolved since discontinuing hydrochlorothiazide and starting potassium supplementation. (2) HLD (hyperlipidemia): Code(s): E78.5 - Hyperlipidemia, unspecified Qualifiers: Hyperlipidemia type: mixed hyperlipidemia Qualified Code(s): E78.2 - Mixed hyperlipidemia Plan: Most recent lipid panel showing appropriate total cholesterol and LDL. Patient will continue on high-dose statin therapy with goal LDL to remain below 100 (3) DMII (diabetes mellitus, type 2): Code(s): E11.9 - Type 2 diabetes mellitus without complications Qualifiers: Diabetes mellitus complication status: without complication Diabetes mellitus half-way insulin use: without half-way use Qualified Code(s): E11.9 - Type 2 diabetes mellitus without complications Plan: Patient's type 2 diabetes well controlled with current dose Trulicity every other week. Continue to work on lifestyle modifications and a diabetic diet. Goal A1c is to remain below 6.5 (4) Upper extremity pain: Code(s): M79.603 - Pain in arm, unspecified Qualifiers: Laterality: bilateral Qualified Code(s): M79.601 - Pain in right arm; M79.602 - Pain in left arm Plan: Unclear etiology to patient's bilateral upper extremity pain. Concerns for PMR here. Will send for DOTTIE, sed rate and rheumatoid testing. We did discuss the possibly to start prednisone for the treatment of PMR though patient would like to hold off on this time. (5) Obese: Code(s): E66.9 - Obesity, unspecified Qualifiers: Obesity type: due to excess calories Obesity classification: adult class 1 (BMI 30 - 34.9) Serious obesity comorbidity presence: without serious comorbidity Body mass index: BMI 34.0-34.9 Qualified Code(s): E66.09 - Other obesity due to excess calories; Z68.34 - Body mass index [BMI] 34.0-34.9, adult Plan: Noted weight gain since last office visit. We have stopped hydrochlorothiazide and she attributes some of her weight gain to stopping her diuretic. Will start spironolactone as there was a problem with her potassium being low. Will recheck potassium in a few weeks (6) MDD (major depressive disorder), recurrent episode, moderate: Code(s): F33.1 - Major depressive disorder, recurrent, moderate Plan: Patient's depression has been stable, PHQ-9 score 0 today in office. She continues to follow a mental health therapist and a psychiatrist. She does feel somewhat fatigued at times and unknown if this is related to her depression. She does report feeling lack of energy and motivation. Orders: Orders Hemoglobin A1c 3 Months E11.9 - Type 2 diabetes mellitus without complications Cyclic Citrullinated Peptide 03/12/24 M79.601 - Pain in right arm, M79.602 - Pain in left arm Erythrocyte Sedimentation Rate 03/12/24 M79.601 - Pain in right arm, M79.602 - Pain in left arm Comprehensive [place]. Panel Fast 3 Months E78.2 - Mixed hyperlipidemia Magnesium 4 Weeks E83.42 - Hypomagnesemia Potassium 4 Weeks E87.6 - Hypokalemia DOTTIE Reflex Titer and Pattern 03/12/24 M79.601 - Pain in right arm, M79.602 - Pain in left arm Rheumatoid Factor 03/12/24 M79.601 - Pain in right arm, M79.602 - Pain in left arm Medications: New spironolactone (Aldactone) 25 mg PO DAILY 30 days 30 tabs 1RF E87.6 - Hypokalemia On Hold potassium chloride ER (Klor-Con M) Hold Comment: Doctor's Order 20 mEq PO DAILY 30 days 30 tabs 1RF E87.6 - Hypokalemia Coding Level of Care Code Est Pt Level 4 (79399) Diagnoses Hypokalemia E87.6 Mixed hyperlipidemia E78.2 Hyperlipidemia type: mixed hyperlipidemia Type 2 diabetes mellitus without complication, without long-term current use of insulin E11.9 Diabetes mellitus complication status: without complication Diabetes mellitus half-way insulin use: without exterminator helper use Pain in both upper extremities M79.601; M79.602 Laterality: bilateral Class 1 obesity due to excess calories without serious comorbidity with body mass index (BMI) of 34.0 to 34.9 in adult E66.09; Z68.34 Obesity type: due to excess calories Obesity classification: adult class 1 (BMI 30 - 34.9) Serious obesity comorbidity presence: without serious comorbidity Body mass index: BMI 34.0-34.9 MDD (major depressive disorder), recurrent episode, moderate F33.1 Additional Codes FILIBERTO-7 Assessment Billing - FILIBERTO-7 Assessment Tool: FILIBERTO-7 Assessment 74609 ([id number])
== END 2024-03-12 10:50 | disposition home or self-care (01) ==
PROVIDERS: PCP Physician Assistant; Visit Provider Physician Assistant
DX: E11.9 Type 2 diabetes mellitus without complications (principal); E66.09 Other obesity due to excess calories; F33.1 Major depressive disorder, recurrent, moderate; Z68.34 Body mass index [BMI] 34.0-34.9, adult; E87.6 Hypokalemia; E78.2 Mixed hyperlipidemia; M79.601 Pain in right arm; M79.602 Pain in left arm
CPT/HCPCS: 99214

== ENCOUNTER 2024-03-12 11:19 | Outpatient (REF) | payer OTHER, SELFPAY ==
[2024-03-12 13:53] LABS: Rheumatoid Factor < 13.0 IU/mL (<15.0)
[2024-03-12 15:05] LABS: Erythrocyte Sedimentation Rate 5 MM/HR (0-20)
[2024-03-13 14:18] LABS: Cyclic Citrullinated Peptide <16 UNITS
[2024-03-14 11:59] LABS: Anti Nuclear Antibody Screen NEGATIVE (NEGATIVE)
== END 2024-03-12 11:20 | disposition home or self-care (01) ==
LOC: HO.HMGCLDS 11:19
PROVIDERS: PCP Physician Assistant; Visit Provider Physician Assistant
DX: M79.601 Pain in right arm (principal); M79.602 Pain in left arm
CPT/HCPCS: 36415; 85652; 86038; 86200; 86431

== ENCOUNTER 2024-06-04 13:21 | Outpatient (REF) | payer OTHER, SELFPAY ==
[2024-06-04 16:41] LABS: Alanine Aminotransferase 14 U/L (0-31); Albumin Level 4.5 g/dL (3.5-5.0); Alkaline Phosphatase 61 U/L (39-117); Anion Gap 15 (12-20); Aspartate Amino Transferase 17 U/L (5-31); Bilirubin Total 0.3 mg/dL (0.0-1.0); Blood Urea Nitrogen 16 mg/dL (9-16); Calcium 9.1 mg/dL (8.4-10.2); Carbon Dioxide 18 mmol/L (22-29); Chloride 112 mmol/L (96-108); Estimated Glomerular Filt Rate 52; Glucose Fasting 105 mg/dL (60-99); Magnesium 1.6 mg/dL (1.6-2.6); Potassium 3.7 mmol/L (3.3-5.1); Sodium 141 mmol/L (135-145); Total Protein 7.1 g/dL (6.5-8.0)
[2024-06-04 16:42] LABS: Estimated Average Glucose 105 mg/dL; Hemoglobin A1c % 5.3 % (<6.0)
== END 2024-06-04 13:22 | disposition home or self-care (01) ==
LOC: HO.HMGCLDS 13:21
PROVIDERS: PCP Physician Assistant; Visit Provider Physician Assistant
DX: E11.9 Type 2 diabetes mellitus without complications (principal); E83.42 Hypomagnesemia; E78.2 Mixed hyperlipidemia
CPT/HCPCS: 36415; 80053; 83036; 83735

== ENCOUNTER 2024-06-11 14:02 | Outpatient (AMB) | payer OTHER, SELFPAY ==
--- NOTE | 2024-06-11 14:04 | A.OFFPC_ITS ---
Vital Signs 06/11/24 14:11 Height 5 ft 4 in Weight 202 lb 2 oz BMI 34.7 BP 122/58 L Blood Pressure Location Lt brachial Position Sitting Pulse 94 Pulse Source Pulse Oximeter Pulse Oximetry (%) 9 L Oxygen Delivery Method Room Air Intake Visit Reasons: f/u DMII Security Supervisor Required: No Accompanied by: Self / Same As Patient Allergies penicillin V Allergy (Unknown, Verified 06/11/24 14:18) Unknown hydrochlorothiazide Adverse Reaction (Intermediate, Verified 06/11/24 14:18) Hypokalemia Medication List - Last Reconciled 06/11/24 by Yonatan Wiggins PA-C atorvastatin 80 mg PO DAILY 90 days dextroamphetamine-amphetamine 20 mg ER (Adderall XR) 20 mg PO DAILY dulaglutide (Trulicity) 0.75 mg (0.5 mL) subcut .Q2week hydrochlorothiazide 12.5 mg PO DAILY 30 days potassium chloride ER (Klor-Con M) 20 mEq PO DAILY 30 days sertraline 100 mg PO DAILY spironolactone (Aldactone) 25 mg PO DAILY 30 days topiramate 100 mg PO BEDTIME trazodone 100 mg PO BEDTIME ziprasidone HCl (Geodon) 20 mg PO DAILY Tobacco use date assessed: 03/12/24 Dental Screening Dental Screen Date: 03/12/24 HPI f/u DMII HPI Details Patient is a 69-year-old female here today for a follow-up visit. ? Patient has a past history significant type 2 diabetes, mdd, hypertension history of craniotomy. Concern--> she reports intermittently having heart palpitations in his concerned about a cardiac issue. Will send for 5 day cardiac event monitor evaluate for any arrhythmia Hypokalemia: Patient's potassium has normalized since has been taken off of hydrochlorothiazide. Unfortunately has gained weight since being off of diuretic. Was started on spironolactone though did not notice any affect on her weight. Will discontinue She has been trying to increase her potassium is foods. .. Type 2 diabetes:? Has been well controlled with Trulicity (using every other week) lifestyle changes. She admits to being on Trulicity due to availability at pharmacy over the last few months.? Most recent A1c has improved. PLAN: She is interested in starting a alternative GLP 1 for added benefit of weight loss ? HLD: Patient's total cholesterol improved, LDL acceptable.? Patient continues on statin therapy without side effect. .. Major depressive disorder:? Patient continues to follow with psychiatrist who manages all her mental health medications. She admits to being intermittently very depressed secondary to some emotional trauma. ? She reports her depression is fairly well controlled though still has times of depressive moods and decreased motivation. Laboratory Tests 08/24/23 12/29/23 02/16/24 11:31 13:00 11:10 Potassium 3.1 L 3.2 L Creatinine Fasting Glucose Hemoglobin A1c % 5.6 LDL Cholesterol, C alc 03/05/24 06/04/24 11:49 13:36 Potassium 3.7 Creatinine 1.06 Fasting Glucose 105 H Hemoglobin A1c % 5.3 LDL Cholesterol, C alc 70 PFSH Medical History (Updated 06/11/24 @ 14:34 by Yonatan Wiggins PA-C) Hypomagnesemia Surgical History Hx of cataract surgery H/O dilation and curettage History of craniotomy History of left salpingo-oophorectomy Family History Father Prostate cancer Mother No problems noted. Son No problems noted. Social History Housing: House Alcohol intake: former Patient Tobacco Use Status: Former Tobacco user e-Cigarette/Vaping Use: Never Used Second Hand Smoke Exposure: No service: No Current occupational status: retired Cognitive needs: No Hearing needs: No Vision needs: Yes (glasses) Questionnaire Thrive Questionnaire Date Thrive assessed: 03/12/24 FILIBERTO-7 AMB Questionnaire FILIBERTO-7 Date FILIBERTO - 7 assessed: 03/12/24 Source: Developed by Drs. Abdirahman Lepe, Renetta Wheeler, Giovani Dueñas and colleagues, with an educational celi from [employer]. Review of Systems Const Reports fatigue, Denies headache(s) and Reports lethargy Eyes Denies loss of vision ENT Denies vertigo, Denies dizziness, Denies headache(s) and Denies sore throat Card Details: + palpitations Denies chest pain, Reports irregular heart rhythm, Denies leg edema and Denies lightheadedness Resp Denies cough, Denies hemoptysis and Denies wheezing GI Denies abdominal pain, Denies melena, Denies constipation, Denies diarrhea and Denies vomiting Denies urinary frequency, Denies dysuria and Denies urinary urgency Musc Denies arthralgias, Denies joint swelling, Denies numbness and Denies tingling Neuro Denies Abnormal speech present, Denies behavioral changes, Denies vertigo, Denies dizziness, Denies headache(s), Denies loss of vision, Denies memory loss, Denies numbness and Denies tingling Psych Denies anxiety, Denies behavioral changes, Denies depression, Denies memory loss and Denies panic attacks Endo Reports fatigue Bladimir/Lymph Denies easy bleeding and Denies easy bruising Aller/Immun Denies wheezing Physical exam (Primary Care) Vital Signs: Last Vital Signs Pulse 94 06/11/24 14:11 BP 122/58 L 06/11/24 14:11 Pulse Ox 9 L 06/11/24 14:11 Oxygen Delivery Method Room Air 06/11/24 14:11 BMI result Body Mass Index 34.7 Tobacco/Smoking Status: Tobacco use Status Tobacco use date assessed 03/12/24 06/11/24 14:04 Patient Tobacco Use Status Former Tobacco user 06/11/24 14:04 e-Cigarette/Vaping Use Never Used 06/11/24 14:04 Thrive Assessment: Date of Thrive Assessment Date Thrive assessed 03/12/24 06/11/24 14:04 Const General: healthy appearing, no acute distress, alert and awake Nutritional Appearance: well nourished Orientation/consciousness: oriented to person, oriented to place and oriented to time [facility] Ears: TM's normal bilaterally General nose exam: Normal nasal mucous membranes and turbinates present Eyes Conjunctivae: conjunctivae normal Sclerae: sclerae normal Pupils: Equal, round and reactive pupils present Neck Neck: Yes no lymphadenopathy and Yes no JVD Thyroid: Thyroid normal Carotids: no bruits Resp Effort & Inspection: normal respiratory effort and not tachypneic Auscultation: no crackles, no rales, no rhonchi and no wheezes Cardio Rate: regular rate Rhythm: regular rhythm Heart sounds: no murmurs and normal S1 and S2 GI Palpation (GI): Soft to palpation, nontender, no hepatomegaly and no splenomegaly Auscultation: normal bowel sounds Skin General skin exam: no rashes or lesions noted and dry skin Neuro General: oriented to person, oriented to place and oriented to time Cranial nerves: Yes Equal, round and reactive pupils present Speech: No Abnormal speech present Gait exam (Neuro): Normal gait present Motor exam (neuro): no tremor noted Extrem Right upper extremity: full ROM Left upper extremity: full ROM Right lower extremity: full ROM; no edema Left lower extremity: full ROM; no edema Psych Mental Status: mental status grossly normal Speech and movement: Normal speech and movement present Affect: normal affect Attitude: cooperative Thought process: Normal thought process present Assessment and Plan Assessment & Plan (1) Hypokalemia: Code(s): E87.6 - Hypokalemia Plan: Has resolved since discontinuing hydrochlorothiazide . Unfortunately has gained weight to which she attributes to not being on a diuretic. Will continue to hold diuretics. Will discontinue spironolactone. For weight we will try an alternative GLP 1 for both glycemic control and added benefit of weight reduction. (2) HLD (hyperlipidemia): Code(s): E78.5 - Hyperlipidemia, unspecified Qualifiers: Hyperlipidemia type: mixed hyperlipidemia Qualified Code(s): E78.2 - Mixed hyperlipidemia Plan: Most recent lipid panel showing appropriate total cholesterol and LDL. Patient will continue on high-dose statin therapy with goal LDL to remain below 100 (3) DMII (diabetes mellitus, type 2): Code(s): E11.9 - Type 2 diabetes mellitus without complications Qualifiers: Diabetes mellitus complication status: without complication Diabetes mellitus jail insulin use: without jail use Qualified Code(s): E11.9 - Type 2 diabetes mellitus without complications Plan: Continue to work on lifestyle modifications and a diabetic diet. Will try alternative GLP 1 (mounjauro) for better glycemic control and added benefit of weight reduction. Goal A1c is to remain below 6.5 (4) Obese: Code(s): E66.9 - Obesity, unspecified Qualifiers: Body mass index: BMI 34.0-34.9 Obesity classification: adult class 1 (BMI 30 - 34.9) Obesity type: due to excess calories Serious obesity comorbidity presence: without serious comorbidity Qualified Code(s): E66.09 - Other obesity due to excess calories; Z68.34 - Body mass index [BMI] 34.0-34.9, adult Plan: Noted weight gain since last office visit. We have stopped hydrochlorothiazide and she attributes some of her weight gain to stopping her diuretic. Will start spironolactone as there was a problem with her potassium being low. Will recheck potassium in a few weeks (5) MDD (major depressive disorder), recurrent episode, moderate: Code(s): F33.1 - Major depressive disorder, recurrent, moderate Plan: Patient's depression continues to be somewhat of problem. She continues to follow a mental health therapist and a psychiatrist. She does feel somewhat fatigued at times and unknown if this is related to her depression. She does report feeling lack of energy and motivation. (6) Heart palpitations: Code(s): R00.2 - Palpitations Plan: As per HPI does report intermittent episodes of short-lived heart palpitations. She is concerned as she has a family history of heart disease. Will send for a 5 day Holter monitor to evaluate for any arrhythmia. Orders: Orders ECG 5 day holter monitor 06/11/24 R00.2 - Palpitations Basic Metabolic Panel 06/11/24 E87.6 - Hypokalemia Medications: New tirzepatide (Mounjaro) 2.5 mg (0.5 mL) subcut QWEEK 2 mL 1RF 4 weeks E11.9 - Type 2 diabetes mellitus without complications Discontinued hydrochlorothiazide Discontinued Reason: Doctor's Order 12.5 mg PO DAILY 30 days 30 tabs 3RF E87.6 - Hypokalemia spironolactone (Aldactone) Discontinued Reason: Doctor's Order 25 mg PO DAILY 30 days 30 tabs 1RF E87.6 - Hypokalemia dulaglutide (Trulicity) Discontinued Reason: Doctor's Order 0.75 mg (0.5 mL) subcut .Q2week 2 mL 11R F E11.9 - Type 2 diabetes mellitus without complications Coding Level of Care Code Est Pt Level 4 (01982) Diagnoses Hypokalemia E87.6 Mixed hyperlipidemia E78.2 Hyperlipidemia type: mixed hyperlipidemia Type 2 diabetes mellitus without complication, without long-term current use of insulin E11.9 Diabetes mellitus complication status: without complication Diabetes mellitus longwall foreman insulin use: without longwall foreman use Class 1 obesity due to excess calories without serious comorbidity with body mass index (BMI) of 34.0 to 34.9 in adult E66.09; Z68.34 Body mass index: BMI 34.0-34.9 Obesity classification: adult class 1 (BMI 30 - 34.9) Obesity type: due to excess calories Serious obesity comorbidity presence: without serious comorbidity MDD (major depressive disorder), recurrent episode, moderate F33.1 Heart palpitations R00.2
[2024-06-11 14:11] VITALS: BP 122/58; PULSE 94; O2SAT 9; BMI 34.7
== END 2024-06-11 14:49 | disposition home or self-care (01) ==
PROVIDERS: PCP Physician Assistant; Visit Provider Physician Assistant
DX: E11.9 Type 2 diabetes mellitus without complications (principal); F33.1 Major depressive disorder, recurrent, moderate; E66.09 Other obesity due to excess calories; Z68.34 Body mass index [BMI] 34.0-34.9, adult; E87.6 Hypokalemia; E78.2 Mixed hyperlipidemia; R00.2 Palpitations
CPT/HCPCS: 99214

== ENCOUNTER → 2024-07-25 11:21 | Outpatient (REF) | payer OTHER, SELFPAY ==
--- NOTE | 2024-07-25 11:24 | HM_ITS ---
* Total monitoring time 4 days and 17 hours. * Underlying rhythm is sinus with an average rate of 78/Min. * Rare supraventricular and ventricular ectopy. * No significant pauses or high-grade AV blocks. * Patient marker used in association with sinus rhythm. * Diary symptom- ' take breath away' while waking up, associated with sinus rhythm. MTDD
== END ==
LOC: HO.CARD 11:21
PROVIDERS: PCP Physician Assistant; Visit Provider Physician Assistant
DX: R00.2 Palpitations (principal)
CPT/HCPCS: 93242

== ENCOUNTER → 2024-07-25 11:24 | Outpatient (BNV) | payer OTHER, SELFPAY | PROVIDERS: PCP Physician Assistant; Visit Provider Internal Medicine | DX: I47.10 Supraventricular tachycardia, unspecified (principal) | CPT/HCPCS: 93244 ==

== ENCOUNTER 2024-07-27 10:33 | Outpatient (REF) | payer OTHER, SELFPAY ==
[2024-07-27 14:23] LABS: Anion Gap 10 (12-20); Blood Urea Nitrogen 18 mg/dL (9-16); Calcium 9.5 mg/dL (8.4-10.2); Carbon Dioxide 22 mmol/L (22-29); Chloride 112 mmol/L (96-108); Estimated Glomerular Filt Rate 45; Glucose Random 104 mg/dL (60-115); Potassium 3.9 mmol/L (3.3-5.1); Sodium 140 mmol/L (135-145)
== END 2024-07-27 10:34 | disposition home or self-care (01) ==
LOC: HO.HMGCLDS 10:33
PROVIDERS: PCP Physician Assistant; Visit Provider Physician Assistant
DX: E87.6 Hypokalemia (principal)
CPT/HCPCS: 36415; 80048

== ENCOUNTER 2024-10-03 11:50 | Outpatient (AMB) | payer OTHER, SELFPAY ==
--- NOTE | 2024-10-03 11:52 | A.OFFPC_ITS ---
Vital Signs 10/03/24 12:07 Height 5 ft 4 in Weight 207 lb 4 oz BMI 35.6 BP 118/66 Blood Pressure Location Lt brachial Position Sitting Pulse 84 Pulse Source Pulse Oximeter Pulse Oximetry (%) 99 Oxygen Delivery Method Room Air Intake Visit Reasons: f/u weight check, potassium - Rescheduled 08/01 User Experience Manager Required: No Accompanied by: Self / Same As Patient Allergies penicillin V Allergy (Unknown, Verified 10/03/24 12:09) Unknown hydrochlorothiazide Adverse Reaction (Intermediate, Verified 10/03/24 12:09) Hypokalemia Medication List - Last Reconciled 10/03/24 by Yonatan Wiggins PA-C atorvastatin 80 mg PO DAILY 90 days dextroamphetamine-amphetamine 20 mg ER (Adderall XR) 20 mg PO DAILY potassium chloride ER (Klor-Con M) 20 mEq PO DAILY 30 days sertraline 100 mg PO DAILY tirzepatide (Mounjaro) 2.5 mg (0.5 mL) subcut QWEEK 4 weeks topiramate 100 mg PO BEDTIME trazodone 100 mg PO BEDTIME ziprasidone HCl (Geodon) 20 mg PO DAILY Tobacco use date assessed: 03/12/24 Fall risk assessment: No Falls in past year Last assessed Fall Risk: 10/03/24 Dental Screening Dental Screen Date: 03/12/24 HPI f/u weight check, potassium - Rescheduled 08/01 HPI Details Patient is a 69-year-old female here today for a follow-up visit. ? Patient has a past history significant type 2 diabetes, mdd, hypertension history of craniotomy. Concern--> she reports intermittently having heart palpitations in his concerned about a cardiac issue. She has done a 5 day heart monitoring which did not show any significant arrhythmias. She also reports her right shoulder has been in a lot of pain can not recall any injury to her right shoulder. She reports she has some decreased range of motion and inability to raise her right arm over head. She is interested in seeing an orthopedics for evaluation and treatment. We did discuss physical therapy though he would like to hold off on therapy at this time. Hypokalemia: Patient's potassium has normalized since has been taken off of hydrochlorothiazide. Unfortunately has gained weight since being off of diuretic. Was started on spironolactone though did not notice any affect on her weight. Will discontinue She has been trying to increase her potassium is foods. .. Type 2 diabetes:? Has been well controlled with Trulicity (using every other week) lifestyle changes. She admits to being on Trulicity due to availability at pharmacy over the last few months.? Most recent A1c has improved. Unfortunately has gained weight since last office visit. She admits to being a bit sedentary ? HLD: Patient's total cholesterol improved, LDL acceptable.? Patient continues on statin therapy without side effect. .. Major depressive disorder:? Patient continues to follow with psychiatrist who manages all her mental health medications. She admits to being intermittently very depressed secondary to some emotional trauma. ? She reports her depression is fairly well controlled though still has times of depressive moods and decreased motivation. [facility] Medical History (Updated 10/03/24 @ 12:14 by Yonatan Wiggins PA-C) Hypomagnesemia Surgical History Hx of cataract surgery H/O dilation and curettage History of craniotomy History of left salpingo-oophorectomy Family History Father Prostate cancer Mother No problems noted. Son No problems noted. Social History Housing: House Alcohol intake: former Patient Tobacco Use Status: Former Tobacco user e-Cigarette/Vaping Use: Never Used Second Hand Smoke Exposure: No service: No Current occupational status: retired Cognitive needs: No Hearing needs: No Vision needs: Yes (glasses) Questionnaire Thrive Questionnaire Date Thrive assessed: 03/12/24 AUDIT C Alcohol Use Questionnaire (AUDIT-C) 3. How often do you have six or more drinks on one occasion?: Never Total Score: 0 FILIBERTO-7 AMB Questionnaire FILIBERTO-7 Date FILIBERTO - 7 assessed: 03/12/24 Source: Developed by Drs. Abdirahman Lepe, Renetta Wheeler, Giovani Dueñas and colleagues, with an educational celi from [employer]. Review of Systems Const Denies headache(s) Eyes Denies loss of vision ENT Denies vertigo, Denies dizziness, Denies headache(s) and Denies sore throat Card Denies chest pain, Denies leg edema and Denies lightheadedness Resp Denies cough, Denies hemoptysis and Denies wheezing GI Denies abdominal pain, Denies melena, Denies constipation, Denies diarrhea and Denies vomiting Denies urinary frequency, Denies dysuria and Denies urinary urgency Musc Denies arthralgias, Denies joint swelling, Denies numbness and Denies tingling Neuro Denies Abnormal speech present, Denies behavioral changes, Denies vertigo, Denies dizziness, Denies headache(s), Denies loss of vision, Denies memory loss, Denies numbness and Denies tingling Psych Denies anxiety, Denies behavioral changes, Denies depression, Denies memory loss and Denies panic attacks Bladimir/Lymph Denies easy bleeding and Denies easy bruising Aller/Immun Denies wheezing Physical exam (Primary Care) Vital Signs: Last Vital Signs Pulse 84 10/03/24 12:07 BP 118/66 10/03/24 12:07 Pulse Ox 99 10/03/24 12:07 Oxygen Delivery Method Room Air 10/03/24 12:07 BMI result Body Mass Index 35.6 BMI Assessment/Plan discussion: High BMI High, discussed plan: lifestyle, weight reduction, dietary and physical activity Tobacco/Smoking Status: Tobacco use Status Tobacco use date assessed 03/12/24 10/03/24 11:52 Patient Tobacco Use Status Former Tobacco user 10/03/24 11:52 e-Cigarette/Vaping Use Never Used 10/03/24 11:52 Thrive Assessment: Date of Thrive Assessment Date Thrive assessed 03/12/24 10/03/24 11:52 Const General: healthy appearing, no acute distress, alert and awake Nutritional Appearance: well nourished Orientation/consciousness: oriented to person, oriented to place and oriented to time [facility] Ears: TM's normal bilaterally General nose exam: Normal nasal mucous membranes and turbinates present Eyes Conjunctivae: conjunctivae normal Sclerae: sclerae normal Pupils: Equal, round and reactive pupils present Neck Neck: Yes no lymphadenopathy and Yes no JVD Thyroid: Thyroid normal Carotids: no bruits Resp Effort & Inspection: normal respiratory effort and not tachypneic Auscultation: no crackles, no rales, no rhonchi and no wheezes Cardio Rate: regular rate Rhythm: regular rhythm Heart sounds: no murmurs and normal S1 and S2 GI Palpation (GI): Soft to palpation, nontender, no hepatomegaly and no splenomegaly Auscultation: normal bowel sounds Skin General skin exam: no rashes or lesions noted and dry skin Neuro General: oriented to person, oriented to place and oriented to time Cranial nerves: Yes Equal, round and reactive pupils present Speech: No Abnormal speech present Gait exam (Neuro): Normal gait present Motor exam (neuro): no tremor noted Extrem Right upper extremity: full ROM Left upper extremity: full ROM Right lower extremity: full ROM; no edema Left lower extremity: full ROM; no edema Psych Mental Status: mental status grossly normal Speech and movement: Normal speech and movement present Affect: normal affect Attitude: cooperative Thought process: Normal thought process present Coding Level of Care Code Est Pt Level 4 (42252) Diagnoses Type 2 diabetes mellitus without complication, without long-term current use of insulin E11.9 Diabetes mellitus complication status: without complication Diabetes mellitus retirement insulin use: without retirement use Right shoulder tendinitis M77.8 Mixed hyperlipidemia E78.2 Hyperlipidemia type: mixed hyperlipidemia Assessment & Plan Assessment & Plan (1) DMII (diabetes mellitus, type 2): Code(s): E11.9 - Type 2 diabetes mellitus without complications Category: Medical Qualifiers: Diabetes mellitus complication status: without complication Diabetes mellitus retirement insulin use: without intermediate project manager use Qualified Code(s): E11.9 - Type 2 diabetes mellitus without complications Plan: Patient's type 2 diabetes has been well controlled with dietary modifications and every other week use of Trulicity. She will continue with dietary modifications. Goal A1c is to remain below 7.0 (2) Right shoulder tendinitis: Code(s): M77.8 - Other enthesopathies, not elsewhere classified Category: Medical Plan: As per HPI patient's seems to be having a right shoulder tendinitis. Will likely benefit from physical therapy though patient declining physical therapy at this time. She would like to see her orthopedic and perhaps discuss injection. (3) HLD (hyperlipidemia): Code(s): E78.5 - Hyperlipidemia, unspecified Category: Medical Qualifiers: Hyperlipidemia type: mixed hyperlipidemia Qualified Code(s): E78.2 - Mixed hyperlipidemia Plan: Patient's most recent lipid panel showing good control over total cholesterol and LDL. She will continue on atorvastatin 80 mg. Goal LDL is to remain below 100. Orders: Orders Lipid Panel 10/03/24 E78.2 - Mixed hyperlipidemia Comprehensive [place]. Panel Fast 10/03/24 E78.2 - Mixed hyperlipidemia Hemoglobin A1c 10/03/24 E11.9 - Type 2 diabetes mellitus without complications Referrals Orthopedics Referral M77.8 - Other enthesopathies, not elsewhere classified Medications: Refilled atorvastatin 80 mg PO DAILY 90 tabs 8RF 90 days E11.9 - Type 2 diabetes mellitus without complications Discontinued tirzepatide (Cresencioro) Discontinued Reason: Doctor's Order 2.5 mg (0.5 mL) subcut QWEEK 4 weeks 2 mL 1RF E11.9 - Type 2 diabetes mellitus without complications
[2024-10-03 12:07] VITALS: BP 118/66; PULSE 84; O2SAT 99; BMI 35.6
== END 2024-10-03 12:28 | disposition home or self-care (01) ==
PROVIDERS: PCP Physician Assistant; Visit Provider Physician Assistant
DX: E11.9 Type 2 diabetes mellitus without complications (principal); M77.8 Other enthesopathies, not elsewhere classified; E78.2 Mixed hyperlipidemia

== ENCOUNTER → 2024-10-03 11:50 | Outpatient (BNVA) | payer OTHER, SELFPAY | PROVIDERS: PCP Physician Assistant; Visit Provider Physician Assistant ==

== ENCOUNTER 2024-10-31 08:00 | Outpatient (AMB) | payer OTHER, SELFPAY ==
--- NOTE | 2024-10-31 08:04 | A.OFFVIS_ITS ---
Vital Signs 10/31/24 08:13 Height 5 ft 4 in Weight 207 lb 4 oz BMI 35.6 Intake Visit Reasons: Right shoulder pain and weakness Intake Note: Lupe is a 69 year old right hand dominant female who presents with complaints of progressively worsening right shoulder pain and weakness. She describes her pain as sharp in nature. Most of the pain is along the lateral aspect of her shoulder. She states that her symptoms have gotten worse over the last year in spite of continued non operative treatments. She has failed the last 6 weeks of conservative treatment which has consisted of topical cream, Tylenol, ibuprofen and physical therapy exercises. She reports weakness when lifting her right hand above shoulder height. At this point her right shoulder pain is interf ering with her activities of daily living and her ability to sleep well through the night. Allergies penicillin V Allergy (Unknown, Verified 10/31/24 08:13) Unknown hydrochlorothiazide Adverse Reaction (Intermediate, Verified 10/31/24 08:13) Hypokalemia Medication List - Last Reconciled 10/31/24 by Adrian Queen MD atorvastatin 80 mg PO DAILY 90 days dextroamphetamine-amphetamine 20 mg ER (Adderall XR) 20 mg PO DAILY potassium chloride ER (Klor-Con M) 20 mEq PO DAILY 30 days sertraline 100 mg PO DAILY trazodone 100 mg PO BEDTIME ziprasidone HCl (Geodon) 20 mg PO DAILY [facility] Medical History (Updated 10/26/24 @ 11:04 by Adrian Queen MD) Hypomagnesemia Surgical History Hx of cataract surgery H/O dilation and curettage History of craniotomy History of left salpingo-oophorectomy Family History Father Prostate cancer Mother No problems noted. Son No problems noted. Social History Housing: House Alcohol intake: former Patient Tobacco Use Status: Former Tobacco user e-Cigarette/Vaping Use: Never Used Second Hand Smoke Exposure: No service: No Current occupational status: retired Current occupation: rt handed Cognitive needs: No Hearing needs: No Vision needs: Yes (glasses) Physical Exam Vital Signs: BMI result Body Mass Index 35.6 Const Other: Well-nourished well-developed very friendly female awake alert and oriented x3 in no acute distress Extrem Other: Bilateral upper extremity examination shows good capillary refill, no skin lesions noted, normal sensation light touch Right shoulder examination shows decreased range of motion when compared to her left shoulder, 4+ out of 5 strength with supraspinatus testing, positive impingement signs, tenderness over her acromioclavicular joint, no instability Results Reviewed Results Reviewed: X-rays of the patient's right shoulder taken today show severe acromioclavicular joint narrowing, a type 2 acromion, no acute bony abnormalities Assessment & Plan Assessment & Plan (1) Right shoulder pain: Code(s): M25.511 - Pain in right shoulder Category: Medical Plan Ms. Marino presents with right shoulder pain and weakness due to impingement syndrome and possible rotator cuff tearing. I will send the patient for an MRI of her right shoulder for further evaluation. I will see her back once the MRI is completed to discuss the findings and treatment options. Feel free to call me at any time should questions regarding her orthopedic management arise. Thank you very much for asking me to see this very friendly patient. I spent 21 minutes in reviewing the patient's records and imaging studies, seeing the patient and documenting in the medical record. Orders: Orders XR shoulder RT min 2V Today M25.511 - Pain in right shoulder MR shoulder RT wo con Today M25.511 - Pain in right shoulder Coding Level of Care Code New Pt Level 3 (03736) Complex EM visit Add On G2211 Diagnoses Right shoulder pain M25.511
[2024-10-31 08:13] VITALS: BMI 35.6
== END 2024-10-31 08:21 | disposition home or self-care (01) ==
PROVIDERS: PCP Physician Assistant; Visit Provider Orthopaedic Surgery
DX: M25.511 Pain in right shoulder (principal)
CPT/HCPCS: 99203; G2211

== ENCOUNTER 2024-10-31 09:17 | Outpatient (REF) | payer OTHER, SELFPAY ==
--- NOTE | ~2024-10-31 | XR_ITS ---
EXAMINATION: XR RIGHT SHOULDER CLINICAL INFORMATION: Pain in right shoulder M25.511. COMPARISON: None available TECHNIQUE: Two views of the right shoulder. FINDINGS: Diffuse bone demineralization. No evidence of acute fracture dislocation. Glenohumeral and acromioclavicular articulation is maintained. On the provided views, the glenohumeral space is maintained. No abnormal soft tissue calcification. XR/XR shoulder RT min 2V IMPRESSION: No radiographic evidence of acute osseous abnormality. Study is assigned/presented to me for interpretation on Dec 07, 2024 Electronically signed by: Zaid Carreon MD 12/07/2024 01:32 PM ELENA
== END 2024-10-31 09:18 | disposition home or self-care (01) ==
LOC: HO.HOSX 09:17
PROVIDERS: Visit Provider Orthopaedic Surgery
DX: M25.511 Pain in right shoulder (principal)
CPT/HCPCS: 73030

== ENCOUNTER 2024-11-26 09:28 | Outpatient (AMB) | payer OTHER, SELFPAY ==
--- NOTE | 2024-11-26 09:30 | A.OFFVIS_ITS ---
Vital Signs 11/26/24 09:31 Height 5 ft 4 in Weight 207 lb 4 oz BMI 35.6 Intake Visit Reasons: OV-RT shoulder MRI Review Intake Note: Lupe is a 69 year old right hand dominant female who presents with complaints of progressively worsening right shoulder pain and stiffness. She describes her pain as sharp in nature. Most of the pain is along the lateral aspect of her shoulder. She states that her symptoms have gotten worse over the last year in spite of continued non operative treatments. She has failed the last 6 weeks of conservative treatment which has consisted of topical cream, Tylenol, ibuprofen and physical therapy exercises. She reports difficulty lifting her right hand above shoulder height. At this point her right shoulder pain is interfering wit h her activities of daily living and her ability to sleep well through the night. Allergies penicillin V Allergy (Unknown, Verified 11/26/24 09:33) Unknown hydrochlorothiazide Adverse Reaction (Intermediate, Verified 11/26/24 09:33) Hypokalemia Medication List - Last Reconciled 11/26/24 by Adrian Queen MD atorvastatin 80 mg PO DAILY 90 days dextroamphetamine-amphetamine 20 mg ER (Adderall XR) 20 mg PO DAILY potassium chloride ER (Klor-Con M) 20 mEq PO DAILY 30 days sertraline 100 mg PO DAILY trazodone 100 mg PO BEDTIME ziprasidone HCl (Geodon) 20 mg PO DAILY PFSH Medical History Hypomagnesemia Surgical History Hx of cataract surgery H/O dilation and curettage History of craniotomy History of left salpingo-oophorectomy Family History Father Prostate cancer Mother No problems noted. Son No problems noted. Social History Housing: House Alcohol intake: former Patient Tobacco Use Status: Former Tobacco user e-Cigarette/Vaping Use: Never Used Second Hand Smoke Exposure: No service: No Current occupational status: retired Current occupation: rt handed Cognitive needs: No Hearing needs: No Vision needs: Yes (glasses) Physical Exam Vital Signs: BMI result Body Mass Index 35.6 Const Other: Well-nourished well-developed very friendly female awake alert and oriented x3 in no acute distress Extrem Other: Bilateral upper extremity examination shows good capillary refill, no skin lesions noted, normal sensation light touch Right shoulder examination shows decreased active and passive range of motion when compared to her left shoulder, 4+ out of 5 strength with supraspinatus testing, positive impingement signs, tenderness over her acromioclavicular joint, no instability Results Reviewed Results Reviewed: Rayus right shoulder MRI show severe acromioclavicular joint narrowing, a type 2 acromion, signal change within the supraspinatus tendon most likely due to adhesive capsulitis Assessment & Plan Assessment & Plan (1) Impingement of right shoulder: Code(s): M25.811 - Other specified joint disorders, right shoulder Category: Medical Plan Ms. Marino presents with progressively worsening right shoulder pain and stiffness due to impingement syndrome, acromioclavicular joint arthritis and adhesive capsulitis. I had a lengthy discussion with the patient regarding the treatment options. At this point the patient appears to be failing continued non operative treatments. The risks and benefits of right shoulder arthroscopic surgery were discussed at length with the patient. The patient is interested in proceeding with surgery later this year when she returns from [place]. Surgery will most likely involve right shoulder diagnostic arthroscopy with distal clavicle excision, acromioplasty, capsular release and manipulation under anesthesia. She will contact my office to pick a surgery date when she chooses to do so. She will continue with her [id number] exercises in the meantime. Feel free to call me at any time should questions regarding her orthopedic management arise. I spent 20 minutes in reviewing the patient's records and imaging studies, seeing the patient and documenting in the medical record. Coding Level of Care Code Est Pt Level 3 (86489) Complex EM visit Add On G2211 Diagnoses Impingement of right shoulder M25.811
[2024-11-26 09:31] VITALS: BMI 35.6
== END 2024-11-26 09:47 | disposition home or self-care (01) ==
PROVIDERS: PCP Physician Assistant; Visit Provider Orthopaedic Surgery
DX: M25.811 Other specified joint disorders, right shoulder (principal)
CPT/HCPCS: 99213; G2211

== ENCOUNTER 2025-03-27 10:23 | Outpatient (REF) | payer OTHER, SELFPAY ==
[2025-03-27 14:11] LABS: Alanine Aminotransferase 101 U/L (0-31); Albumin Level 3.7 g/dL (3.5-5.0); Alkaline Phosphatase 83 U/L (39-117); Anion Gap 13 (12-20); Aspartate Amino Transferase 62 U/L (5-31); Bilirubin Total 0.8 mg/dL (0.0-1.0); Blood Urea Nitrogen 30 mg/dL (9-16); Calcium 9.4 mg/dL (8.4-10.2); Carbon Dioxide 24 mmol/L (22-29); Chloride 100 mmol/L (96-108); Cholesterol 103 mg/dL (<200); Estimated Glomerular Filt Rate 49; Glucose Fasting 134 mg/dL (60-99); HDL Cholesterol 16 mg/dL (>40); LDL Cholesterol Calculated 42 mg/dL (<100); Potassium 3.4 mmol/L (3.3-5.1); Sodium 134 mmol/L (135-145); Total Protein 7.1 g/dL (6.5-8.0); Triglycerides 227 mg/dL (<150)
[2025-03-27 14:19] LABS: Estimated Average Glucose 114 mg/dL; Hemoglobin A1C 135.8745 umol/L; Hemoglobin A1c % 5.6 % (<6.0); Total Hemoglobin (HGBA1C) 3591.3769 umol/L
== END 2025-03-27 10:24 | disposition home or self-care (01) ==
LOC: HO.HMGCLDS 10:23
PROVIDERS: PCP Physician Assistant; Visit Provider Physician Assistant
DX: E78.2 Mixed hyperlipidemia (principal); E11.9 Type 2 diabetes mellitus without complications; R74.8 Abnormal levels of other serum enzymes; E87.6 Hypokalemia
CPT/HCPCS: 36415; 80053; 80061; 83036

== ENCOUNTER 2025-04-03 11:08 | Outpatient (AMB) | payer OTHER, SELFPAY ==
[2025-04-03 11:12] VITALS: BP 114/64; PULSE 86; TEMP 36.2; O2SAT 95; BMI 35.2
--- NOTE | 2025-04-03 11:12 | A.OFFPC_ITS ---
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 Accompanied by: Self / Same As Patient Allergies penicillin V Allergy (Unknown, Verified 04/03/25 11:52) Unknown hydrochlorothiazide Adverse Reaction (Intermediate, Verified 04/03/25 11:52) Hypokalemia Medication List - Last Reconciled 04/03/25 by Yonatan Wiggins PA-C atorvastatin 80 mg PO DAILY 90 days dextroamphetamine-amphetamine 20 mg ER (Adderall XR) 20 mg PO DAILY potassium chloride ER (Klor-Con M) 20 mEq PO DAILY 30 days sertraline 100 mg PO DAILY trazodone 100 mg PO BEDTIME ziprasidone HCl (Geodon) 20 mg PO DAILY Tobacco use date assessed: 04/03/25 Fall risk assessment: No Falls in past year Last assessed Fall Risk: 04/03/25 Dental Screening Dental Screen Date: 04/03/25 Did you have a dental visit in the last 12 months?: Yes Did you have a dental problem in the last 6 months where you did not have access to dental care?: No Was dental information given to patient?: Patient has dentist HPI pe HPI Details Patient is a 70-year-old female here today for routine annual physical. ? Patient has a past history significant type 2 diabetes, mdd, hypertension history of craniotomy. She also reports her right shoulder has been in a lot of pain can not recall any injury to her right shoulder. She reports she has some decreased range of motion and inability to raise her right arm over head. She is interested in seeing an orthopedics for evaluation and treatment. We did discuss physical therapy though he would like to hold off on therapy at this time. Hypokalemia: Patient's potassium has normalized since has been taken off of hydrochlorothiazide. Her weight seems to be stable off of diuretics. Was started on spironolactone though did not notice any affect on her weight. .. Type 2 diabetes:? Has been well controlled with Trulicity (using every other week) lifestyle changes. She admits to being on Trulicity due to availability at pharmacy over the last few months.? Most recent A1c has improved. Unfortunately has gained weight since last office visit. She admits to being a bit sedentary ? HLD: Patient's total cholesterol improved, LDL acceptable.? Patient continues on statin therapy without side effect. .. Major depressive disorder:? Patient continues to follow with psychiatrist who manages all her mental health medications. She admits to being intermittently very depressed secondary to some emotional trauma. ? She reports her depression is fairly well controlled though still has times of depressive moods and decreased motivation. LABS: Labs reviewed with the patient and noted elevated liver enzymes, of note did have recent strep infection was given antibiotics by an urgent care which is likely the reason for elevated liver enzymes. Will recheck liver panel in 1-2 weeks to ensure stabilization. Colonoscopy: gets colon done q 5 year-- > goes to [facility] provider- she pr omises to make an appointment for repeat colonoscopy . Mammogram:? 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 .. VAccine:UTD with Tdap and PCV and COVID vaccine, shingles vaccine and flu vaccine Laboratory Tests 06/04/24 07/27/24 03/27/25 13:36 10:36 10:28 Potassium 3.7 3.9 3.4 Creatinine 1.11 Fasting Glucose 134 H Hemoglobin A1c % 5.6 PFSH Medical History Hypomagnesemia Surgical History Hx of cataract surgery H/O dilation and curettage History of craniotomy History of left salpingo-oophorectomy Family History Father Prostate cancer Mother No problems noted. Son No problems noted. Social History Housing: House Alcohol intake: former Patient Tobacco Use Status: Former Tobacco user e-Cigarette/Vaping Use: Never Used Second Hand Smoke Exposure: No service: No Current occupational status: retired Current occupation: rt handed Cognitive needs: No Hearing needs: No Vision needs: Yes (glasses) Questionnaire PHQ-9 Over the last 2 weeks, how often have you been bothered by any of the following problems? 1. Little interest or pleasure in doing things: more than half the days 2. Feeling down, depressed, or hopeless: more than half the days 3. Trouble falling or staying asleep, or sleeping too much: nearly every day 4. Feeling tired or having little energy: nearly every day 5. Poor appetite or overeating: several days 6. Feeling bad about yourself - or that you are a failure or have let yourself or your family down: several days 7. Trouble concentrating on things, such as reading the newspaper or watching television: several days 8. Moving or speaking so slowly that other people could have noticed. Or the opposite - being so fidgety or restless that you have been moving around a lot more than usual: several days 9. Thoughts that you would be better off or of hurting yourself in some way: more than half the days Total score: 16 Depression Screening Interpretation: Positive Depression Screening Follow-up: Existing condition and In treatment Depression Screening Done: Yes 68345 - PHQ-9 Billing: Yes Source: Developed by Drs. Abdirahman Lepe, Renetta Wheeler, Giovani Dueñas and colleagues, with an educational celi from [employer]. Thrive Questionnaire Date Thrive assessed: 04/03/25 I am a: Patient What is your living situation today?: I have a steady place to live Within the past 12 months, did the food you bought not last and you didn't have the money to get more?: Never true Within the past 12 months, did you worry whether your food would run out before you got money to buy more?: Never true Do you have trouble paying for medicines?: No Do you have trouble getting transportation to medical appointments?: No Do you have trouble paying your heating and electricity bill?: No Do you have trouble taking care of your child, family member or friend?: No Do you have trouble with day-to-day activities such as bathing, preparing meals, shopping, managing finances, etc.?: No Are you currently unemployed and looking for a job?: No Are you interested in more education?: No Please select the resources that you would like help with: None Currently or been in a relationship where the following occur: No concerns reported THRIVE Score: 0 AUDIT C Alcohol Use Questionnaire (AUDIT-C) 1. How often do you have a drink containing alcohol?: Never 3. How often do you have six or more drinks on one occasion?: Never Total Score: 0 Score Reviewed/Action Taken: No FILIBERTO-7 AMB Questionnaire FILIBERTO-7 Date FILIBERTO - 7 assessed: 04/03/25 Feeling nervous, anxious, or on edge: 0 = Not at all Not being able to stop or control worryin = Not at all Worrying too much about different things: 0 = Not at all Trouble relaxin = More than half the days Being so restless that it is hard to sit still: 2 = More than half the days Becoming easily annoyed or irritable: 0 = Not at all Feeling afraid as if something awful might happen: 0 = Not at all Total FILIBERTO-7 score (0-4 normal; 5-9 mild; 10-14 moderate; 15-21 severe): 4 Source: Developed by Drs. Abdirahman Lepe, Renetta Wheeler, Giovani Dueñas and colleagues, with an educational celi from [employer]. FILIBERTO-7 Assessment Billing FILIBERTO-7 Assessment Tool: FILIBERTO-7 Assessment 11902 Review of Systems Const Denies body aches, Denies chills, Denies excessive sweating, Denies fatigue, Denies fever(s) and Denies headache(s) Eyes Denies blurry vision ENT Denies dysphagia, Denies vertigo, Denies dizziness, Denies headache(s), Denies hearing loss and Denies tinnitus Card Denies chest pain, Denies chest pain with activity, Denies syncope, Denies irregular heart rhythm and Denies dyspnea Resp Denies chest congestion, Denies cough, Denies hemoptysis, Denies dyspnea and Denies wheezing GI Denies abdominal pain, Denies melena, Denies hematochezia, Denies coffee ground emesis, Denies dysphagia, Denies diarrhea, Denies nausea and Denies vomiting Denies urinary frequency, Denies dysuria, Denies urinary hesitancy and Denies urinary urgency Musc Denies arthralgias, Denies limited range of motion, Denies muscle cramps and Denies muscle weakness Skin/Breast Denies rash and Denies skin ulcer Neuro Denies Abnormal speech present, Denies confusion, Denies vertigo, Denies dizziness, Denies syncope, Denies headache(s), Denies memory loss and Denies seizure-like activity Psych Denies anxiety, Denies confusion, Denies depression, Denies memory loss, Denies panic attacks and Denies paranoia Endo Denies excessive sweating, Denies fatigue, Denies flushing, Denies polydipsia and Denies polyuria Aller/Immun Denies wheezing Physical exam (Primary Care) Vital Signs: Last Vital Signs Temp 97.1 F 04/03/25 11:12 Pulse 86 04/03/25 11:12 BP 114/64 04/03/25 11:12 Pulse Ox 95 04/03/25 11:12 Oxygen Delivery Method Room Air 04/03/25 11:12 BMI result Body Mass Index 35.2 BMI Assessment/Plan discussion: High BMI High, discussed plan: lifestyle, weight reduction, dietary and physical activity Tobacco/Smoking Status: Tobacco use Status Tobacco use date assessed 04/03/25 04/03/25 11:14 Patient Tobacco Use Status Former Tobacco user 04/03/25 11:14 e-Cigarette/Vaping Use Never Used 04/03/25 11:14 PHQ-9: PHQ-9 Score PHQ-9: Total score 16 04/03/25 12:00 Depression Screening Interpretation: Positive Depression Screening Follow-up: Existing condition and In treatment Thrive Assessment: Date of Thrive Assessment Date Thrive assessed 04/03/25 04/03/25 11:14 Currently or been in a relationship where the following occur: No concerns repo rted Const General: cooperative, comfortable, no acute distress, alert and awake; No confusion Orientation/consciousness: oriented to person, oriented to place, patient oriented x3 and No confusion HENMT Head: Yes normocephalic Ears: external ears normal and TM's normal bilaterally Face and sinus: No sinus tenderness Mouth: Normal oral and palatal mucosa present and tongue normal Teeth and gingiva: dentition normal and gingiva normal Throat: Yes posterior oropharynx normal, Yes tonsils normal and Yes uvula midline Eyes Conjunctivae: conjunctivae normal Sclerae: sclerae normal Pupils: Equal, round and reactive pupils present EOM: EOMs intact bilaterally Direct Ophthalmoscopy: No no photophobia Neck Neck: Yes no lymphadenopathy, No tender and Yes no JVD Thyroid: Thyroid normal Carotids: no bruits Chest Chest palpation & inspection: no tenderness Resp Effort & Inspection: normal respiratory effort, no audible wheezes, not labored and no stridor Auscultation: no crackles, no rales, no rhonchi and no wheezes Cardio Jugular venous distension: no JVD Rate: regular rate, not bradycardic and not tachycardic Rhythm: regular rhythm Bruits: no carotid bruits Peripheral pulses: Peripheral pulses 2+ throughout GI Inspection: Yes normal to inspection, No abdominal wall ecchymosis and No visible herniation Palpation (GI): Soft to palpation, nontender, no guarding, not rigid and No hepatosplenomegaly present Auscultation: normoactive bowel sounds General: Yes no CVA tenderness Back/Spine/Pelvis Back: no CVA tenderness and No back tenderness Cervical Spine: cervical ROM normal Thoracic/Lumbar Spine: thoracic and lumbar spine normal to inspection, straight leg raise negative bilaterally, No thoraco-lumbar ROM limited and No lumbar spinal tenderness Skin Lesions: no lesions Rashes: no rashes Wounds: no wounds Neuro General: oriented to person, oriented to place, patient oriented x3, CN's II-XI intact bilaterally and No confusion Cranial nerves: Yes Equal, round and reactive pupils present and Yes Normal accommodation reflex present Cognition (Neuro): normal cognition Speech: No Abnormal speech present Gait exam (Neuro): Normal gait present Motor exam (neuro): 5/5 motor strength present throughout Extrem Right upper extremity: full ROM; no cyanosis Left upper extremity: full ROM; no cyanosis Right lower extremity: no edema Left lower extremity: no edema Psych Appearance: grossly normal Mental Status: mental status grossly normal Affect: normal affect Attitude: cooperative Thought process: Normal thought process present Coding Level of Care Code Est Pt Prev Care >65y(96725) Diagnoses Annual physical exam Z00.00 Type 2 diabetes mellitus without complication, without long-term current use of insulin E11.9 Diabetes mellitus complication status: without complication 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: without watcher automat long goods use Mixed hyperlipidemia E78.2 Hyperlipidemia type: mixed hyperlipidemia MDD (major depressive disorder), recurrent episode, moderate F33.1 Elevated liver enzymes R74.8 Class 2 obesity E66.812 Additional Codes FILIBERTO-7 Assessment Billing - FILIBERTO-7 Assessment Tool: FILIBERTO-7 Assessment 56357 ([id number]) PHQ-9 - 14673 - PHQ-9 Billing: Yes ([id number]) Assessment & Plan Assessment & Plan (1) Annual physical exam: Code(s): Z00.00 - Encounter for general adult medical examination without abnormal findings Category: Medical Plan: As per HPI (2) DMII (diabetes mellitus, type 2): Code(s): E11.9 - Type 2 diabetes mellitus without complications Category: Medical Qualifiers: Diabetes mellitus complication status: without complication Diabetes mellitus prison insulin use: without watcher automat long goods use Qualified Code(s): E11.9 - Type 2 diabetes mellitus without complications Plan: Patient's type 2 diabetes has been well controlled with dietary modifications and every other week use of Trulicity. She will continue with dietary modifications. Goal A1c is to remain below 7.0 (3) HLD (hyperlipidemia): Code(s): E78.5 - Hyperlipidemia, unspecified Category: Medical Qualifiers: Hyperlipidemia type: mixed hyperlipidemia Qualified Code(s): E78.2 - Mixed hyperlipidemia Plan: Patient's most recent lipid panel showing good control over total cholesterol and LDL. She will continue on atorvastatin 80 mg. Goal LDL is to remain below 100. (4) MDD (major depressive disorder), recurrent episode, moderate: Code(s): F33.1 - Major depressive disorder, recurrent, moderate Category: Medical Plan: Patient reports her depression has been fairly well controlled with current dose of sertraline and trazodone. She feels she is very supported by her has been. (5) Elevated liver enzymes: Code(s): R74.8 - Abnormal levels of other serum enzymes Category: Medical Plan: Recent liver enzymes elevated likely due to recent antibiotic use secondary to a strep throat infection. Will recheck liver enzymes in 1-2 weeks. (6) Class 2 obesity: Code(s): E66.812 - Obesity, class 2 Category: Medical Plan: Patient does understand her BMI is over 35 and will work on being more physically active and adapting to better eating habits to reduce her weight Orders: Orders Magnesium 04/03/25 E83.42 - Hypomagnesemia Complete Blood Count no Diff 04/03/25 E78.2 - Mixed hyperlipidemia Comprehensive Leo. Panel Fast 04/03/25 E78.2 - Mixed hyperlipidemia Lipid Panel 04/03/25 E78.2 - Mixed hyperlipidemia Medications: New scopolamine base 1 patch transdermal Q3D PRN 4 ea 0RF nausea and vomiting Patient Instructions: Goal: A1c to remain below 7.0, LDL to remain below 100 Barriers: Adherence to physical activity and healthy eating habits
== END 2025-04-03 12:21 | disposition home or self-care (01) ==
LOC: HO.HMCH 11:09
PROVIDERS: PCP Physician Assistant; Visit Provider Physician Assistant
DX: Z00.00 Encounter for general adult medical examination without abnormal findings (principal); E11.9 Type 2 diabetes mellitus without complications; F33.1 Major depressive disorder, recurrent, moderate; E66.812 Obesity, class 2; Z68.35 Body mass index [BMI] 35.0-35.9, adult; R74.8 Abnormal levels of other serum enzymes; E78.2 Mixed hyperlipidemia

== ENCOUNTER → 2025-04-03 11:08 | Outpatient (BNVA) | payer OTHER, SELFPAY | PROVIDERS: PCP Physician Assistant; Visit Provider Physician Assistant | DX: Z00.00 Encounter for general adult medical examination without abnormal findings (principal); E11.9 Type 2 diabetes mellitus without complications; I10 Essential (primary) hypertension; E87.6 Hypokalemia; E78.2 Mixed hyperlipidemia; F33.1 Major depressive disorder, recurrent, moderate; R74.8 Abnormal levels of other serum enzymes; E66.812 Obesity, class 2; Z68.35 Body mass index [BMI] 35.0-35.9, adult | CPT/HCPCS: 96127 ==

== ENCOUNTER 2025-06-18 12:50 | Outpatient (REF) | payer OTHER, SELFPAY ==
[2025-06-18 14:11] LABS: Potassium 4.6 mmol/L (3.3-5.1)
[2025-06-18 14:17] LABS: Alanine Aminotransferase 18 U/L (0-31); Albumin Level 4.8 g/dL (3.5-5.0); Alkaline Phosphatase 71 U/L (39-117); Aspartate Amino Transferase 20 U/L (5-31); Total Protein 7.4 g/dL (6.5-8.0)
== END 2025-06-18 12:51 | disposition home or self-care (01) ==
LOC: HO.LAB 12:50
PROVIDERS: PCP Physician Assistant; Visit Provider Physician Assistant
DX: E83.42 Hypomagnesemia (principal); E78.2 Mixed hyperlipidemia; E87.6 Hypokalemia; R74.8 Abnormal levels of other serum enzymes
CPT/HCPCS: 36415; 80076; 84132

== ENCOUNTER 2025-09-30 11:17 | Outpatient (REF) | payer OTHER, SELFPAY ==
[2025-09-30 12:15] LABS: Hematocrit 46.0 % (37.0-47.0); Hemoglobin 15.2 g/dl (12.0-16.0); Mean Corpuscular HGB Conc 33.0 g/dl (31.0-35.0); Mean Corpuscular Hemoglobin 28.0 pg (27.0-33.0); Mean Corpuscular Volume 84.9 fL (80.0-98.0); NRBC Abs Auto 0.000 X10*3/uL (0.0-0.012); NRBC Pct Auto 0.0 /100WBC (0.0-0.2); Platelet Count 219 X10*3/uL (160-400); Red Blood Count 5.42 X10*6/uL (4.20-5.50); White Blood Count 7.8 X10*3/uL (4.8-10.8)
[2025-09-30 12:55] LABS: Alanine Aminotransferase 20 U/L (0-31); Albumin Level 4.8 g/dL (3.5-5.0); Alkaline Phosphatase 66 U/L (39-117); Anion Gap 12 (12-20); Aspartate Amino Transferase 22 U/L (5-31); Blood Urea Nitrogen 15 mg/dL (9-16); Calcium 9.5 mg/dL (8.4-10.2); Carbon Dioxide 29 mmol/L (22-29); Chloride 104 mmol/L (96-108); Cholesterol 156 mg/dL (<200); Estimated Glomerular Filt Rate 45; HDL Cholesterol 45 mg/dL (>40); Potassium 4.4 mmol/L (3.3-5.1); Sodium 141 mmol/L (135-145); Total Protein 7.3 g/dL (6.5-8.0); Triglycerides 158 mg/dL (<150)
[2025-09-30 13:16] LABS: Magnesium 1.2 mg/dL (1.6-2.6)
--- OUTSIDE RECORDS SUMMARY | 2025-09-30 13:36 | XMS_ITS | Encounter Summary ---
Author Organization [facility] Address [address] [place] [address] Care Team Providers Care Trolley Worker Name Role Phone Yonatan Wiggins Primary Care Provider [phone] Encounter Details Date Type Department Care Team (Late st Contact Info) Description 08/01/2025 Lab Requisition [facility] Main Lab [address] [place] [address] Jovany Dye DO [address] [place] [address] Personal history of colon polyps, unspecified Social History Tobacco Use Types Packs/Day Years Used Date Smoking Tobacco: Never Assessed Comments Unknown Sex and Gender Information Value Date Recorded Sex Assigned at Female 07/11/2025 8:21 AM EDT Legal Sex Female 6:28 AM EST Gender Identity Female 07/11/2025 8:21 AM EDT Sexual Orientation Not on file documented as of this encounter Progress Notes * Jovany Dye DO - 08/01/2025 7:31 AM EDT Please let the patient know that the colon polyp removed was benign and not precancerous. These aregreat news. However, given the patient's personal history of precancerous colon polyps in the past,I recommend that a surveillance colonoscopy is performed in 5 years. High-fiber diet and avoidance of processed foods is recommended. Please place a reminder on the system for the patient to be contacted to have a surveillance colonoscopy in 5 years. Thank you. documented in this encounter Plan of Treatment Not on file documented as of this encounter Procedures Procedure Name Priority Date/Time Associated Diagnosis Comments TISSUE EXAM Routine 07/31/2025 Personal history of colon polyps, unspecified documented in this encounter Results * Tissue Exam (07/31/2025) Final Diagnosis A. Left/descending colon polyps, biopsy: Fragments of hyperplastic polyps. B. Rectum polyp, biopsy: Hyperplastic polyp. 08/02/2025 8:02 AM EDT [facility] Gross Description A. Large Intestine, Left/Descending Colon, x2: Received in formalin labeled left/descending colon x 2 , are 2 pina-pink, polypoid soft tissue fragments, measuring 0.5 x 0.3 x 0.3 cm and 0.9 x 0.3 x 0.3 cm. The specimen is entirely submitted in cassette A1, 2 pieces. MG, PA (ASCP)CM- 08/01/25 B. Rectum, : Received in formalin labeled rectum polyp , is a pina-pink, polypoid soft tissue fragment, measuring 0.3 x 0.3 x 0.2 cm. The specimen is entirely submitted in cassette B1, 1 piece. MG, PA (ASCP)CM- 08/01/25 08/02/2025 8:02 AM EDT [facility] Disclaimer The technical components of this case were performed [address] [id number] 08/02/2025 8:02 AM EDT [facility] Tissue Rectum structure / Unknown 07/31/2025 08/01/2025 7:31 AM EDT Tissue specimen (specimen) Rectum structure / Unknown 07/31/2025 08/01/2025 7:31 AM EDT us Jovany Dye DO LAB PATHOLOGY ORDERABLES Final R esult [facility] [address] [place] [address], [place] [phone] documented in this encounter Visit Diagnoses Diagnosis Personal history of colon polyps, unspecified documented in this encounter Care Teams Trolley Worker Relationship Specialty Start Date End Date Yonatan Wiggins PA [facility] [place] [address] PCP - General Physician Filtration Plant Operator 07/11/25 documented as of this encounter
--- OUTSIDE RECORDS SUMMARY | 2025-09-30 13:36 | XMS_ITS | Clinical Summary ---
Author Organization [facility] [address] [facility] Address [address] [place] [address] Phone Care Team Providers Care Binding Bench Worker Name Role Phone Yonatan Wiggins Primary Care Provider [phone] Allergies Active Allergy Reactions Criticality Noted Date Comments Hydrochlorothiazide 07/11/2025 Hypokalemia Penicillin G 07/11/2025 Medications atorvastatin (LIPITOR) 80 mg tablet Take 1 tablet (80 mg total) by mouth 1 (one) time each day. 5 Active amphetamine-dex troamphetamine XR (ADDERALL XR) 20 mg 24 hr capsule Take 1 capsule (20 mg total) by mouth 1 (one) time each day in the morning. Max Daily Amount: 20 mg 5 Active sertraline (ZOLOFT) 100 mg tablet Take 1 tablet (100 mg total) by mouth 1 (one) time each day. 5 Active traZODone (DESYREL) 100 mg tablet Take 1 tablet (100 mg total) by mouth at bedtime. 5 Active ziprasidone (GEODON) 20 mg capsule Take 1 capsule (20 mg total) by mouth 2 (two) times a day with meals. 5 Active potassium chloride (KLOR-CON M20) 20 mEq CR tablet Take 1 tablet (20 mEq total) by mouth 1 (one) time each day. Tablet may be swallowed whole (do not crush/chew/suck on) OR broken in half and each half swallowed separately OR dissolved (whole tablet) in ~4 ounces of water (allow ~2 minutes to dissolve, stir well and administer immediately). Active polyethylene glycol (Golytely) 236-22.74-6.74 -5.86 gram solution Take 4L by mouth once for one dose. May substitue any PEG. Starting at 2PM the day before your procedure drink 1 8oz glasses at your own pace until you complete half of the gallon. Finish 2nd half of the gallon at 8PM. 4000 mL 5 Active bisacodyL (DULCOLAX) 5 mg EC tablet Take 2 tablets by mouth right before beginning bowel prep. See instructions provided by the office 2 tablet 5 Active Encounters Date Type Department Care Team Description 08/01/2025 Lab Requisition [facility] Main Lab [address] [place] [address] Jovany Dey DO Personal history of colon polyps, unspecified 07/11/2025 Telephone Gastroenterology - [address] [facility] [address] [place] [address] Jeremias Mclean MD from Last 3 Months Social History Tobacco Use Types Packs/Day Years Used Date Smoking Tobacco: Never Assessed Comments Unknown Sex and Gender Information Value Date Recorded Sex Assigned at Female 07/11/2025 8:21 AM EDT Legal Sex Female 6:28 AM EST Gender Identity Female 07/11/2025 8:21 AM EDT Sexual Orientation Not on file Plan of Treatment Health Maintenance Due Date Last Done Comments Breast Cancer Screening 1955 DTaP,Tdap,and Td Vaccines (1 - Tdap) 02/26/1975 Pneumococcal Vaccine: 50+ Years (1 of 1 - PCV) 02/26/2006 Zoster Vaccines (1 of 2) 02/26/2006 Falls Risk Assessment 10/24/2022 Hepatitis C Screening 10/24/2022 Osteoporosis Screening (Bone Density Screening) 10/24/2022 Social Influencers of Health Screening 10/24/2022 Depression Screening 11/21/2024 COVID-19 Vaccine ( - season) 2025 Influenza Vaccine (#1) 2025 Colorectal Cancer Screening: Colonoscopy 07/31/2030 07/31/2025, 07/15/2025, 07/15/2025, Additional history exists RSV Immunization Adult Patients (1 - 1-dose 75+ series) 02/26/2031 HIB Vaccines Aged Out No longer eligi ble based on patient's age to complete this topic HPV Vaccines Aged Out No longer eligi ble based on patient's age to complete this topic Hepatitis A Vaccines Aged Out No long er eligible based on patient's age to complete this topic Hepatitis B Vaccines Aged Out No long er eligible based on patient's age to complete this topic IPV Vaccines Aged Out No longer eligi ble based on patient's age to complete this topic MMR Vaccines Aged Out No longer eligi ble based on patient's age to complete this topic Meningococcal ACWY Vaccine Aged Out N o longer eligible based on patient's age to complete this topic Meningococcal B Vaccine Aged Out No l onger eligible based on patient's age to complete this topic RSV Immunization Patients Under 20 months Aged Out No longer eligible based on patient's age to complete this topic Varicella Vaccines Aged Out No longer eligible based on patient's age to complete this topic Procedures Procedure Name Priority Date/Time Associated Diagnosis Comments TISSUE EXAM Routine 07/31/2025 Personal history of colon polyps, unspecified HP LINK COLONOSCOPY Routine 07/15/2025 8 :45 AM EDT HP LINK COLONOSCOPY Routine 07/15/2025 8 :44 AM EDT from Last 3 Months Results * Tissue Exam (07/31/2025) Final Diagnosis A. Left/descending colon polyps, biopsy: Fragments of hyperplastic polyps. B. Rectum polyp, biopsy: Hyperplastic polyp. 08/02/2025 8:02 AM EDT [facility] Gross Description A. Large Intestine, Left/Descending Colon, x2: Received in formalin labeled left/descending colon x 2 , are 2 pina-pink, polypoid soft tissue fragments, measuring 0.5 x 0.3 x 0.3 cm and 0.9 x 0.3 x 0.3 cm. The specimen is entirely submitted in cassette A1, 2 pieces. MG PA (ASCP)CM- 08/01/25 B. Rectum, : Received in formalin labeled rectum polyp , is a pina-pink, polypoid soft tissue fragment, measuring 0.3 x 0.3 x 0.2 cm. The specimen is entirely submitted in cassette B1, 1 piece. MG PA (ASCP)CM- 08/01/25 08/02/2025 8:02 AM EDT [facility] Disclaimer The technical components of this case were performed at [address] [address] CLIA # [id number] 08/02/2025 8:02 AM EDT [facility] Tissue Rectum structure / Unknown 07/31/2025 08/01/2025 7:31 AM EDT Tissue specimen (specimen) Rectum structure / Unknown 07/31/2025 08/01/2025 7:31 AM EDT Jovany Dye DO LAB PATHOLOGY ORDERABLES Final R esult [facility] [address] [place] [address], [place] [phone] * HM Colonoscopy (07/15/2025 8:45 AM EDT) Only the most recent of2 resultswithin the time period is included. Historical Provider HEALTH MAINTENANCE Final Result from Last 3 Mon[place] [phone] MEDICARE [facility] Care Teams Binding Bench Worker Relationship Specialty Start Date End Date Yonatan Wiggins PA [address] [place] [address] PCP - General Physician Kennel Assistant 07/11/25
== END 2025-09-30 11:18 | disposition home or self-care (01) ==
LOC: HO.LAB 11:17
PROVIDERS: PCP Physician Assistant; Visit Provider Physician Assistant
DX: E78.2 Mixed hyperlipidemia (principal); E83.42 Hypomagnesemia
CPT/HCPCS: 36415; 80053; 80061; 83735; 85027

== ENCOUNTER 2025-10-07 10:59 | Outpatient (AMB) | payer OTHER, SELFPAY ==
--- NOTE | 2025-10-07 11:15 | A.OFFPC_ITS ---
Vital Signs 10/07/25 11:16 Height 5 ft 3.98 in Weight 185 lb 8 oz BMI 31.9 BP 106/70 Blood Pressure Location Lt brachial Position Sitting Pulse 91 Pulse Source Pulse Oximeter Temp 97.1 F Temp Source Temporal Artery Scan Pulse Oximetry (%) 98 Oxygen Delivery Method Room Air Intake Visit Reasons: f/u HTN/ DMII Intake Note: Patient is here to follow up on HTN, DMII. Prosthetic Aide Required: No Social Work Msw: Not Required per policy Accompanied by: Self / Same As Patient Allergies penicillin V Allergy (Unknown, Verified 10/07/25 11:30) Unknown hydrochlorothiazide Adverse Reaction (Intermediate, Verified 10/07/25 11:30) Hypokalemia Medication List - Last Reconciled 10/07/25 by Yonatan Wiggins PA-C atorvastatin 80 mg PO DAILY 90 days dextroamphetamine-amphetamine 20 mg ER (Adderall XR) 20 mg PO DAILY 30 days magnesium oxide 500 mg PO DAILY sertraline 100 mg PO DAILY trazodone 100 mg PO BEDTIME ziprasidone HCl (Geodon) 20 mg PO DAILY Tobacco use date assessed: 10/07/25 Fall risk assessment: No Falls in past year Last assessed Fall Risk: 10/07/25 Dental Screening Dental Screen Date: 04/03/25 HPI f/u HTN/ DMII HPI Details Patient is a 70-year-old female here today for follow-up visit ? Patient has a past history significant type 2 diabetes, mdd, hypertension history of craniotomy. .. Hypokalemia: Patient's potassium has normalized since has been taken off of hydrochlorothiazide. Her weight seems to be stable off of diuretics. Was started on spironolactone though did not notice any affect on her weight. .. Type 2 diabetes/ last 1 obesity:? Today's A1c improved at 5.2. Was previously on Trulicity though has transitioned to a alternative GLP 1 through weight has been integrative Medicine. Unfortunately has gained weight since last office visit. She admits to being a bit sedentary Of note noted to have a low magnesium at 1.3. Most likely reasoning-- > all of the weight loss secondary to GLP 1 therapy. She has a recently restarted taking magnesium supplementation. HLD: Patient's total cholesterol improved, LDL acceptable.? Patient continues on statin therapy without side effect. .. Major depressive disorder:? Patient continues to follow with psychiatrist who manages all her mental health medications. She admits to being intermittently very depressed secondary to some emotional trauma. ? She reports her depression is fairly well controlled though still has times of depressive moods and decreased motivation. Laboratory Tests 03/27/25 09/30/25 10:28 11:28 RBC 5.42 Magnesium 1.2 L* Triglycerides 227 H 158 H Cholesterol 156 LDL Cholesterol, C alc 80 PFSH Medical History Hypomagnesemia Surgical History Hx of cataract surgery H/O dilation and curettage History of craniotomy History of left salpingo-oophorectomy Family History Father Prostate cancer Mother No problems noted. Son No problems noted. Social History Housing: House Alcohol intake: former Patient Tobacco Use Status: Former Tobacco user e-Cigarette/Vaping Use: Never Used Second Hand Smoke Exposure: Yes service: No Current occupational status: retired Current occupation: rt handed Cognitive needs: No Hearing needs: No Vision needs: Yes (glasses) Questionnaire Thrive Questionnaire Date Thrive assessed: 04/03/25 I am a: Patient What is your living situation today?: I have a steady place to live Within the past 12 months, did the food you bought not last and you didn't have the money to get more?: Never true Within the past 12 months, did you worry whether your food would run out before you got money to buy more?: Never true Do you have trouble paying for medicines?: No Do you have trouble getting transportation to medical appointments?: No Do you have trouble paying your heating and electricity bill?: No Do you have trouble taking care of your child, family member or friend?: No Do you have trouble with day-to-day activities such as bathing, preparing meals, shopping, managing finances, etc.?: No Are you currently unemployed and looking for a job?: No Are you interested in more education?: No Please select the resources that you would like help with: None Currently or been in a relationship where the following occur: No concerns reported THRIVE Score: 0 FILIBERTO-7 AMB Questionnaire FILIBERTO-7 Date FILIBERTO - 7 assessed: 04/03/25 Source: Developed by Drs. Abdirahman Lepe, Renetta Wheeler, Giovani Dueñas and colleagues, with an educational celi from [employer]. Review of Systems Const Denies headache(s) Eyes Denies loss of vision ENT Denies vertigo, Denies dizziness, Denies headache(s) and Denies sore throat Card Denies chest pain, Denies leg edema and Denies lightheadedness Resp Denies cough, Denies hemoptysis and Denies wheezing GI Denies abdominal pain, Denies melena, Denies constipation, Denies diarrhea and Denies vomiting Denies urinary frequency, Denies dysuria and Denies urinary urgency Musc Denies arthralgias, Denies joint swelling, Denies numbness and Denies tingling Neuro Denies Abnormal speech present, Denies behavioral changes, Denies vertigo, Denies dizziness, Denies headache(s), Denies loss of vision, Denies memory loss, Denies numbness and Denies tingling Psych Denies anxiety, Denies behavioral changes, Denies depression, Denies memory loss and Denies panic attacks Bladimir/Lymph Denies easy bleeding and Denies easy bruising Aller/Immun Denies wheezing Physical exam (Primary Care) Vital Signs: Last Vital Signs Temp 97.1 F 10/07/25 11:16 Pulse 91 10/07/25 11:16 BP 106/70 10/07/25 11:16 Pulse Ox 98 10/07/25 11:16 Oxygen Delivery Method Room Air 10/07/25 11:16 BMI result Body Mass Index 31.9 BMI Assessment/Plan discussion: High BMI High, discussed plan: lifestyle, weight reduction, dietary and physical activity Tobacco/Smoking Status: Tobacco use Status Tobacco use date assessed 10/07/25 10/07/25 11:17 Patient Tobacco Use Status Former Tobacco user 10/07/25 11:17 e-Cigarette/Vaping Use Never Used 10/07/25 11:17 Thrive Assessment: Date of Thrive Assessment Date Thrive assessed 04/03/25 10/07/25 11:17 Currently or been in a relationship where the following occur: No concerns reported Const General: healthy appearing, no acute distress, alert and awake Nutritional Appearance: well nourished Orientation/consciousness: oriented to person, oriented to place and oriented to time HENMT Ears: TM's normal bilaterally General nose exam: Normal nasal mucous membranes and turbinates present Eyes Conjunctivae: conjunctivae normal Sclerae: sclerae normal Pupils: Equal, round and reactive pupils present Neck Neck: Yes no lymphadenopathy and Yes no JVD Thyroid: Thyroid normal Carotids: no bruits Resp Effort & Inspection: normal respiratory effort and not tachypneic Auscultation: no crackles, no rales, no rhonchi and no wheezes Cardio Rate: regular rate Rhythm: regular rhythm Heart sounds: no murmurs and normal S1 and S2 GI Palpation (GI): Soft to palpation, nontender, no hepatomegaly and no splenomegaly Auscultation: normal bowel sounds Skin General skin exam: no rashes or lesions noted and dry skin Neuro General: oriented to person, oriented to place and oriented to time Cranial nerves: Yes Equal, round and reactive pupils present Speech: No Abnormal speech present Gait exam (Neuro): Normal gait present Motor exam (neuro): no tremor noted Extrem Right upper extremity: full ROM Left upper extremity: full ROM Right lower extremity: full ROM; no edema Left lower extremity: full ROM; no edema Psych Mental Status: mental status grossly normal Speech and movement: Normal speech and movement present Affect: normal affect Attitude: cooperative Thought process: Normal thought process present Office Procedures Flu Questionnaire Does the patient have a severe egg allergy?: No Does the patient have severe life threatening allergies?: No Does the patient have a fever or illness today?: No Has the patient ever had Guillain-[place] Syndrome?: No Has the patient ever had any past reaction to a flu shot?: No Results AMB Hemoglobin A1c AMB Hemoglobin A1c 5.2 % Last Edit by MARIELLE Cortez on 10/07/25 11:34 Immunizations Fluarix [id number] (PF) 45 mcg (15 mcg x 3)/0.5 mL IM syringe Performing Provider: Yonatan Wiggins PA-C [facility] Administered by: MARIELLE Dickinson on 10/07/25 12:05 Dose Route Admin Location Dispensed Lot Number Expiration Date [facility] Staffing Program Manager 0.5 mL IM Left Deltoid 0.5 mL [id number] 05/20/26 [id number] LIA VIS Given Date VIS Provided VIS Publication Date 10/07/25 Single Vaccine 24 Eligibility Eligibility Date Funding Source Not VF Eligible 10/07/25 Private Results Reviewed Results Reviewed: Laboratory Last Values Hgb A1c (Clinic) 5.2 % (4.0-6.0) 10/07/25 11:17 Coding Level of Care Code Est Pt Level 4 (46450) Diagnoses Type 2 diabetes mellitus without complication, without long-term current use of insulin E11.9 Diabetes mellitus complication status: without complication Diabetes mellitus mcfp insulin use: without mcfp use Mixed hyperlipidemia E78.2 Hyperlipidemia type: mixed hyperlipidemia MDD (major depressive disorder), recurrent episode, moderate F33.1 Hypomagnesemia E83.42 Class 1 obesity E66.9 Assessment & Plan Assessment & Plan (1) DMII (diabetes mellitus, type 2): Code(s): E11.9 - Type 2 diabetes mellitus without complications Category: Medical Qualifiers: Diabetes mellitus complication status: without complication Diabetes mellitus terminal operations supervisor insulin use: without terminal operations supervisor use Qualified Code(s): E11.9 - Type 2 diabetes mellitus without complications Plan: Patient's type 2 diabetes now well controlled, continues on a GLP 1 through an Integrative Medicine practice, most recent fasting blood sugar stable . She will continue with dietary modifications. Goal A1c is to remain below 7.0 (2) HLD (hyperlipidemia): Code(s): E78.5 - Hyperlipidemia, unspecified Category: Medical Qualifiers: Hyperlipidemia type: mixed hyperlipidemia Qualified Code(s): E78.2 - Mixed hyperlipidemia Plan: Patient's most recent lipid panel showing good control over total cholesterol and LDL. She will continue on atorvastatin 80 mg. Goal LDL is to remain below 100. (3) MDD (major depressive disorder), recurrent episode, moderate: Code(s): F33.1 - Major depressive disorder, recurrent, moderate Category: Medical Plan: Patient reports her depression has been fairly well controlled with current dose of sertraline and trazodone. She feels she is very supported by her has been. (4) Hypomagnesemia: Code(s): E83.42 - Hypomagnesemia Category: Medical Plan: As per HPI noted to have a low magnesium. Likely due to weight loss secondary to GLP 1 therapy. Has been taking magnesium supplementation and will recheck her magnesium at next lab draw. (5) Class 1 obesity: Code(s): E66.9 - Obesity, unspecified Category: Medical Plan: Will continue working with Integrative Medicine on her weight loss journey. Orders: Orders AMB Hemoglobin A1c Today E11.9 - Type 2 diabetes mellitus without complications Magnesium Today E83.42 - Hypomagnesemia Comprehensive [place]. Panel Fast Today E11.9 - Type 2 diabetes mellitus without c omplications Lipid Panel Today E78.2 - Mixed hyperlipidemia Hemoglobin A1c Today E11.9 - Type 2 diabetes mellitus without complications Complete Blood Count no Diff Today E11.9 - Type 2 diabetes mellitus without complications Influenza [id number] Immunization Today Z23 - Encounter for immunization
[2025-10-07 11:16] VITALS: BP 106/70; PULSE 91; TEMP 36.2; O2SAT 98; BMI 31.9
--- OUTSIDE RECORDS SUMMARY | 2025-10-07 22:50 | XMS_ITS | Clinical Summary ---
Author Organization [facility] [address] [facility] Address [address] [place] [address] Phone Care Team Providers Care Lead Tank Mechanic Name Role Phone Yonatan Wiggins Primary Care Provider Allergies Active Allergy Reactions Criticality Noted Date [...] Department Care Team Description 08/01/2025 Lab Requisition [facility] Main Lab [address] [place] [address] Jovany Dye DO Personal history of colon polyps, unspecified 07/11/2025 Telephone Gastroenterology - [address] [facility] [address] [place] [address] Jeremias Mclean MD from Last [...] Depression Screening 11/21/2024 COVID-19 Vaccine ( - 2024- season) 2025 Influenza Vaccine (#1) 2025 Colorectal [...] biopsy: Hyperplastic polyp. 08/02/2025 8:02 AM EDT [facility] Gross Description A. Large Intestine, [...] PA (ASCP)CM- 08/01/25 08/02/2025 8:02 AM EDT [facility] Disclaimer The technical components of this case were performed at [address] [address] CLIA # [id number] 08/02/2025 8:02 AM EDT [facility] Tissue Rectum structure / Unknown 07/31/2025 08/01/2025 7:31 AM EDT Tissue specimen (specimen) Rectum structure / Unknown 07/31/2025 08/01/2025 7:31 AM EDT Jovany Dye DO LAB PATHOLOGY ORDERABLES Final R esult [facility] [address] [place] [address], [place] [phone] * HM Colonoscopy (07/15/2025 8:45 AM EDT) Only the most recent of2 resultswithin the time period is included. Historical Provider HEALTH MAINTENANCE Final Result from Last 3 Mon[place] [phone] MEDICARE [facility] Care Teams Lead Tank Mechanic Relationship Specialty Start Date End Date Yonatan Wiggins PA [address] [place] [address] PCP - General Physician Medical Office Specialist 07/11/25
--- OUTSIDE RECORDS SUMMARY | 2025-10-07 22:51 | XMS_ITS | Encounter Summary ---
Author Organization [facility] Address [address] [place] [address] Care Team Providers Care Financial Counselor Name Role Phone Yonatan Wiggins Primary Care Provider Encounter Details Date Type Department Care Team (Late st Contact Info) Description 08/01/2025 Lab Requisition [facility] Lab [address] [place] [address] Jovany Dye DO [address] [place] [address] Personal history of colon polyps, unspecified Social [...] biopsy: Hyperplastic polyp. 08/02/2025 8:02 AM EDT [facility] Gross Description A. Large Intestine, [...] PA (ASCP)CM- 08/01/25 08/02/2025 8:02 AM EDT [facility] Disclaimer The technical components of this case [address] performed [address] [id number] 08/02/2025 8:02 AM EDT [facility] Tissue Rectum structure / Unknown 07/31/2025 08/01/2025 7:31 AM EDT Tissue specimen (specimen) Rectum structure / Unknown 07/31/2025 08/01/2025 7:31 AM EDT us Jovany Dye DO LAB PATHOLOGY ORDERABLES Final R esult [facility] [address] [place] [address], [place] [phone] documented in this encounter Visit Diagnoses Diagnosis Personal history of colon polyps, unspecified documented in this encounter Care Teams Financial Counselor Relationship Specialty Start Date End Date Yonatan Wiggins PA [facility] [place] [address] PCP - General Physician Television Installer Helper 07/11/25 documented as of this encounter
== END 2025-10-07 12:07 | disposition home or self-care (01) ==
LOC: HO.HMCH 11:00
PROVIDERS: PCP Physician Assistant; Visit Provider Physician Assistant
DX: E11.9 Type 2 diabetes mellitus without complications (principal); F33.1 Major depressive disorder, recurrent, moderate; E66.9 Obesity, unspecified; Z68.31 Body mass index [BMI] 31.0-31.9, adult; E78.2 Mixed hyperlipidemia; E83.42 Hypomagnesemia; Z23 Encounter for immunization

== ENCOUNTER → 2025-10-07 10:59 | Outpatient (BNVA) | payer OTHER, SELFPAY | PROVIDERS: PCP Physician Assistant; Visit Provider Physician Assistant | DX: E11.9 Type 2 diabetes mellitus without complications (principal); I10 Essential (primary) hypertension; E66.9 Obesity, unspecified; E78.2 Mixed hyperlipidemia; F33.1 Major depressive disorder, recurrent, moderate; E83.42 Hypomagnesemia; Z23 Encounter for immunization; Z68.31 Body mass index [BMI] 31.0-31.9, adult | CPT/HCPCS: 83036; 90471; 90656 ==